=== PATIENT | male | born 1950 | race Caucasian/White ===

== ENCOUNTER 2019-03-21 00:10 | Inpatient (IN) | payer MEDICARE, OTHER ==
[~2019-03-21] VITALS: Ht 177.8 cm; Wt 179.9 kg
[2019-03-21] MEDS ORDERED: ONDANSETRON 4 MG INJ IV STA (01:58)
[2019-03-21] MEDS ORDERED: morphine 4 MG/ML VIAL IV STA (01:58)
[2019-03-21] MEDS ORDERED: ACETAMINOPHEN 325 MG TAB PO PRN ×2 (02:00→07:00)
[2019-03-21] MEDS ORDERED: ONDANSETRON 4 MG INJ IV PRN ×2 (02:00→07:00)
--- NOTE | 2019-03-21 02:39 | ERD ---
ER Documentation Chief Complaint Chief Complaint Low back pain from ground level fall, no KO, no ALOC. HPI This is a 68-year-old male with a past medical history of hypertension, hyperlipidemia, atrial fibrillation status post pacemaker, aortic valve disease status post TAVR, hepatitis C with liver disease, chronic lower extremity edema, morbid obesity, significant ambulatory dysfunction, a prolonged admission at [facility] for volume overload for which she required significant diuresis, ultimately discharged to a group home facility and rehab center where he remained for 2 months for rehabilitation of physical deconditioning, discharged from the group home facility today after it was determined that he was no longer progressing in rehab who is now presenting after a fall due to continued weakness and ambulatory dysfunction where he landed on his right knee. The patient endorsed significant right knee pain and was not able to get up off the ground. At that time, an ambulance was called. The patient's sensation and strength is intact distal to the injury. The patient reports that he felt that he was prematurely discharged from the group home facility and feels unsafe at home. The patient denies feeling sick recently. The patient denies fever or chills. The patient has had no headache or vision changes. The patient does not endorse neck or back pain. The patient denies lightheadedness or dizziness. The patient has had no chest pain or trouble breathing. The patient denies nausea or vomiting. The patient denies abdominal pain. The patient denies changes to bowel movements or urination. The patient has had no focal deficits. The patient has had no weakness or numbness or tingling to the face or extremities. ROS All systems reviewed and are negative except as per history of present illness. PMhx/Soc History of Surgery: Yes (TAVR Heart valve, Pace maker) Anesthesia Reaction: No Hx Neurological Disorder: Yes (TIA) Hx Respiratory Disorders: No Hx Cardiac Disorders: Yes (Pace maker, A-fib, TAVR) Hx Psychiatric Problems: No Hx Miscellaneous Medical Probl: Yes (DM) Hx Alcohol Use: Yes (Quit ) Hx Substance Use: No Hx Tobacco Use: Yes (Quit ) Smoking Status: Former smoker Physical Exam Vitals Vital Signs Date Temp Pulse Resp B/P (MAP) Pulse Ox O2 O2 Flow FiO2 Time Delivery Rate 03/21/19 97.5 80 18 130/62 100 Room Air 00:47 (84) 03/21/19 97.5 78 18 130/62 100 00:41 (84) Physical Exam Const: No apparent distress, well-developed, well-nourished Head: Normocephalic, Atraumatic Eyes: Normal Conjunctiva. Extraocular movements grossly intact. ENT: Normal External Ears, Nose and Mouth. Neck: Full range of motion. No meningismus. Resp: Clear to auscultation bilaterally, No wheezes, rales or rhonchi Cardio: Regular rate and rhythm. No murmurs, rubs or gallops. Right chest pacemaker present. Abd: Morbid obesity with a BMI of 56. Soft, non tender. Normal bowel sounds Skin: No petechiae or rashes Back: No midline tenderness. No CVA tenderness Ext: No cyanosis. Bilateral lower extremity 1+ pitting edema. Right lateral knee tenderness but range of motion intact. Neur: Awake and alert, oriented 4. Cranial nerves intact. No facial droop. Normal strength, sensation and coordination. Psych: Normal Mood and Affect Results 24 hrs Current Medications Medications Dose Sig/Julius Start Time Status Last (Trade) Ordered Route PRN Stop Time Admin Dose Reason Admin Ondansetron 4 mg BRIDGE ORDER 03/21/19 HCl (Zofran PRN IV 02:00 Inj) NAUSEA/VOMITI 03/22/19 01:59 NG 650 mg ER BRIDGE 03/21/19 Acetaminophen PRN PO 02:00 (Tylenol .MILD PAIN 03/22/19 01:59 Tab) 1-3 OR TEMP Morphine 4 mg ONCE STAT 03/21/19 DC Sulfate IV 01:58 (morphine) 03/21/19 01:59 Ondansetron 4 mg ONCE STAT 03/21/19 DC HCl (Zofran IV 01:58 Inj) 03/21/19 01:59 Procedures/MDM MDM The patient's presentation warrants further investigation. Previous medical records, if available, were reviewed. LABS The patient's laboratory testing was obtained and reviewed. No emergent treatment was required unless described below. EKG EKG read by me: Rate/Rhythm: Regular rate and rhythm at a rate of 86 bpm with occasional PACs Intervals: Prolonged IL interval indicating a first-degree AV block wide QRS indicating a left bundle branch block, does not meet any sgarbossa criteria Treichlers: Left axis deviation Impression: No evidence of acute ischemia or arrhythmia IMAGING Imaging and Radiology interpretation reviewed. CXR 1V Interpreted by me Soft Tissue: No acute abnormalities Bones: No acute abnormalities Mediastinum/Cardiac Silhouette: Right chest pacemaker evident. Cardiomegaly, otherwise unremarkable. No widened mediastinum. Lungs: No acute abnormalities. Normal pulmonary vasculature. No pneumothorax. No pulmonary edema. Clear costal diaphragmatic angles. No pleural effusions. No opacity or consolidations concerning for pneumonia. X-ray right knee Interpreted by me Proximal right fibular fracture X-ray right tib-fib Pending TREATMENT/DISPOSITION The patient presents for continued deconditioning and right knee pain after a fall due to weakness in his knees buckling under his weight. The patient was discharged from a group home facility today, but at this time I do not feel that the patient is safe for discharge under the circumstances. Additionally, the patient was found to have a right fibular fracture that will not allow him to successfully or safely ambulate at home. The patient will require further evaluation of this. I do also feel the patient requires physical and occupational therapy. The on-call orthopedic surgeon, Dr. Vigil, was consulted on the case. Preoperative testing was completed. There is no other trauma or injury. The patient was treated with morphine and Zofran for symptom control. ADMISSION At this time, I feel that the patient requires admission for further evaluation and management. The patient will be admitted to [Panel] in accordance with the patient's insurance. The patient was accepted by Dr. Leavitt at 1:55 AM on March 21, 2019. The on-call orthopedic physician, Dr. Vigil, was consulted on the case. Disclaimer: Inadvertent spelling and grammatical errors are likely due to EHR/dictation software use and do not reflect on the overall quality of patient care. Note that the electronic time recorded on this note does not necessarily reflect the actual time of the patient encounter. Departure Diagnosis: Primary Impression: Closed right fibular fracture Encounter type: initial encounter Fibula location: proximal Fracture morphology: unspecified fracture morphology Qualified Codes: S82.831A - Other fracture of upper and lower end of right fibula, initial encounter for closed fracture Additional Impressions: Physical deconditioning Ambulatory dysfunction Morbid obesity Generalized weakness Condition: Serious DILSHAD AMARO MD March 21, 2019 02:39
[2019-03-21 06:30] VITALS: BP 110/57; PULSE 80; RESP 18
--- NOTE | 2019-03-21 06:47 | HP ---
Date/Time of Note Date/Time of Note DATE: 03/21/19 TIME: 06:43 Assessment/Plan VTE Prophylaxis Pharmacological prophylaxis: heparin Assessment/Plan Assessment/Plan 68-year-old morbidly obese male with a history of TIA, atrial fibrillation status post ablation a year and half ago, pacemaker, TAVR, liver disease, hep C cirrhosis status post treatment, CKD, GI bleed secondary to small intestinal ulcer status post cauterization at [facility] 2 months ago who came to hospital status post mechanical fall found to have acute right fibula fracture. PLAN -Patient was at rehab for about 2 months and pretty much immediately after she was discharged from rehab, she had a mechanical fall, and now as we know resulting in right fibula fracture. Dr. Vigil, Ortho was consulted -Pain management -Continue home meds, adjust as needed -Obtain records from [facility] -will order bariatric bed for him if possible -Nephrology consult -Patient will have surgery, is going to need a cardiology clearance -DVT prophylaxis. Caution on the blood thinners however given GI bleed secondary to small intestinal ulcer (status post cauterization at [facility] 2 months ago) (see HPI for more info) Result Diagram: 03/21/19 0249 03/21/19 0249 Results 24hrs Laboratory Tests Test 03/21/19 02:49 White Blood Count 7.4 Red Blood Count 3.72 L Hemoglobin 10.6 L Hematocrit 33.8 L Mean Corpuscular Volume 90.9 Mean Corpuscular Hemoglobin 28.5 L Mean Corpuscular Hemoglobin Concent 31.4 L Red Cell Distribution Width 17.0 H Platelet Count 88 L Mean Platelet Volume 9.7 Immature Granulocytes % 0.300 Neutrophils % 80.7 H Lymphocytes % 9.2 L Monocytes % 7.8 Eosinophils % 1.6 Basophils % 0.4 Nucleated Red Blood Cells % 0.0 Immature Granulocytes # 0.020 Neutrophils # 6.0 Lymphocytes # 0.7 L Monocytes # 0.6 Eosinophils # 0.1 Basophils # 0.0 Nucleated Red Blood Cells # 0.0 Prothrombin Time 15.6 H Prothrombin Time Ratio 1.2 INR International Normalized Ratio 1.23 Sodium Level 139 Potassium Level 4.2 Chloride Level 107 Carbon Dioxide Level 24 Anion Gap 8 Blood Urea Nitrogen 34 H Creatinine 1.75 H Est Glomerular Filtrat Rate mL/min 39 L Glucose Level 128 Calcium Level 9.2 HPI/ROS Admit Date/Time Admit Date/Time March 21, 2019 at 01:58 Hx of Present Illness This is a 68-year-old morbidly obese male with a history of diabetes, TIA, atrial fibrillation, pacemaker, aortic valve replacement, hep C cirrhosis, status post treatment for hep C, and history of CKD and anemia/GI bleed who presents the ER complaining of right lower extremity and back pain status post fall. Patient was admitted at [facility] couple months ago for anemia and GI bleed. At that time he underwent EGD and colonoscopy without finding of a source of bleeding. He said he was then seen by a specialist who was able to "get to my intestine and found active bleeding". He said after he was cauterized, his hemoglobin stabilized. He required 8 units of PRBCs while he was hospitalized. Patient was then sent to rehab. He said initially he was dealing with flu like symptoms. He was able to do rehab for about 2 weeks after resolution of his flulike symptoms. He was discharged from rehab and shortly after he got home, he said his knee buckled resulting him to fall. X-ray here shows acute right fibula fracture. He complains that he was prematurely discharged from rehab. Lab shows a creatinine of 1.75. Patient also with signs of volume overload. PMH/Family/Social Past Medical History Medical History: other (See HPI) Medications Current Medications Ondansetron HCl (Zofran Inj) 4 mg BRIDGE ORDER PRN IV NAUSEA/VOMITING; Start 03/21/19 at 02:00; Stop 03/22/19 at 01:59 Acetaminophen (Tylenol Tab) 650 mg ER BRIDGE PRN PO .MILD PAIN 1-3 OR TEMP; Start 03/21/19 at 02:00; Stop 03/22/19 at 01:59 Coded Allergies: Penicillins (Verified Allergy, Unknown, 03/21/19) as per patient he was given penicillin eardrops in the past and his ear canal "closed" and his MD told him at thst time that "maybe he is allergic" Past Surgical History Past Surgical Hx: other (See HPI) Family History Significant Family History: no pertinent family hx Social History Alcohol Use: none Smoking Status: Former smoker Drug Use: none Exam/Review of Systems Vital Signs Vitals Vital Signs Date Temp Pulse Resp B/P (MAP) Pulse Ox O2 O2 Flow FiO2 Time Delivery Rate 03/21/19 88 18 124/68 100 Room Air 05:22 (86) 03/21/19 97.5 00:47 Exam Constitutional: alert, oriented, well developed Head: normocephalic, atraumatic Eyes: EOMI, PERRL Respiratory: clear to auscultation, normal air movement Cardiovascular: regular rate and rhythm, nl pulses Gastrointestinal: soft Extremities: other (Right leg is covered) ALLEN TUCKER MD March 21, 2019 06:47
[2019-03-21] MEDS ORDERED: NACL 0.9% 3 ML SYG IV SCH (07:00)
[2019-03-21] MEDS ORDERED: ALBUTEROL/IPRATROPIUM (NEB) 3 ML AMP HHN PRN (07:00)
[2019-03-21] MEDS ORDERED: HYDROCODONE/APAP (5/325) TAB PO PRN (07:00)
[2019-03-21 07:30] VITALS: Ht 177.8 cm; Wt 179.9 kg
[2019-03-21] MEDS ORDERED: GLUCAGON 1 MG INJ IM PRN (08:00)
[2019-03-21] MEDS ORDERED: GLUCOSE GEL 15 GRAM TUBE BUCCAL PRN (08:00)
[2019-03-21] MEDS ORDERED: GLUCOSE GEL 15 GRAM TUBE PO PRN ×2 (08:00)
[2019-03-21] MEDS ORDERED: DEXTROSE 50% 50 ML SYRINGE IV PRN ×2 (08:00)
[2019-03-21 08:04] VITALS: BP 100/51; PULSE 82; RESP 16
[2019-03-21] MEDS: HYDROCODONE/APAP (5/325) TAB PO PRN ×3 (08:57→21:50)
[2019-03-21] MEDS: INSULIN ASPART [NOVOLOG] 3 ML PEN SC SCH ×3 (09:00→17:39)
[2019-03-21] MEDS: HEPARIN 5,000 UNIT/1 ML VIAL SC SCH ×2 (09:00→21:01)
[2019-03-21 16:42] VITALS: BP 108/51; PULSE 68; RESP 17
--- NOTE | 2019-03-21 18:15 | PN ---
Date/Time of Note Date/Time of Note DATE: 03/21/19 TIME: 18:01 Assessment/Plan VTE Prophylaxis Risk score (from Ns)>0 risk: 11 SCD applied (from [facility] [place], [place]): Yes Pharmacological prophylaxis: NA/contraindicated Pharm contraindication: bleeding Lines/Catheters IV Catheter Type (from [facility]): Saline Lock Urinary Cath still in place: No Assessment/Plan Hospital Course 68-year-old morbidly obese male with a history of TIA, atrial fibrillation status post ablation a year and half ago, pacemaker, TAVR, liver disease, hep C cirrhosis status post treatment, CKD, GI bleed secondary to small intestinal ulcer status post cauterization at [facility] 2 months ago who came to hospital status post mechanical fall found to have acute right fibula fracture. 1. Acute right fibular fracture Patient reports being discharged from a SNF yesterday, he became short of breath and weak and subsequently fell Ortho with Dr. Vigil has been consulted Cardiology consultation with Dr. Zamora for cardiac clearance obtained Pain management 2. Super morbid obesity Patient is try to lose weight 3. History of arrhythmia status post pacemaker placement No acute issues 4. History of TAVR No acute issues Continue cardiac meds once known 5. History of A. fib status post ablation Patient was ablated 1.5 years ago with no further episodes of reported A. fib 6. History of GI bleed secondary to intestinal ulcer status post cauterization 2 months ago at [facility] Patient reportedly had an EGD and colonoscopy that showed no source of bleed but was seen by a specialist who was able to cauterize an intestinal ulcer PPI 7. History of hepatitis C status post treatment Anemia and thrombocytopenia noted 8. Acute versus chronic kidney disease Baseline renal function unknown Nephrology consultation obtained Prophylaxis: SCDs Result Diagram: 03/21/19 0249 03/21/19 0249 Results 24hrs Laboratory Tests Test 03/21/19 02:49 03/21/19 09:04 03/21/19 12:43 03/21/19 17:38 White Blood Count 7.4 Red Blood Count 3.72 L Hemoglobin 10.6 L Hematocrit 33.8 L Mean Corpuscular 90.9 Volume Mean Corpuscular 28.5 L Hemoglobin Mean Corpuscular 31.4 L Hemoglobin Concent Red Cell 17.0 H Distribution Width Platelet Count 88 L Mean Platelet Volume 9.7 Immature 0.300 Granulocytes % Neutrophils % 80.7 H Lymphocytes % 9.2 L Monocytes % 7.8 Eosinophils % 1.6 Basophils % 0.4 Nucleated Red Blood 0.0 Cells % Immature 0.020 Granulocytes # Neutrophils # 6.0 Lymphocytes # 0.7 L Monocytes # 0.6 Eosinophils # 0.1 Basophils # 0.0 Nucleated Red Blood 0.0 Cells # Prothrombin Time 15.6 H Prothrombin Time 1.2 Ratio INR International 1.23 Normalized Ratio Sodium Level 139 Potassium Level 4.2 Chloride Level 107 Carbon Dioxide Level 24 Anion Gap 8 Blood Urea Nitrogen 34 H Creatinine 1.75 H Est Glomerular 39 L Filtrat Rate mL/min Glucose Level 128 Calcium Level 9.2 Bedside Glucose 135 132 138 Subjective 24 Hr Interval Summary Constitutional: no complaints Exam/Review of Systems Exam Vitals Vital Signs Date Temp Pulse Resp B/P (MAP) Pulse Ox O2 O2 Flow FiO2 Time Delivery Rate 03/21/19 97.6 68 17 108/51 100 Nasal 16:42 (70) Cannula Constitutional: alert, oriented Respiratory: clear to auscultation Cardiovascular: regular rate and rhythm Gastrointestinal: soft; No distended Musculoskeletal: nl extremities to inspection Results Results 24hrs Laboratory Tests Test 03/21/19 02:49 03/21/19 09:04 03/21/19 12:43 03/21/19 17:38 White Blood Count 7.4 Red Blood Count 3.72 L Hemoglobin 10.6 L Hematocrit 33.8 L Mean Corpuscular 90.9 Volume Mean Corpuscular 28.5 L Hemoglobin Mean Corpuscular 31.4 L Hemoglobin Concent Red Cell 17.0 H Distribution Width Platelet Count 88 L Mean Platelet Volume 9.7 Immature 0.300 Granulocytes % Neutrophils % 80.7 H Lymphocytes % 9.2 L Monocytes % 7.8 Eosinophils % 1.6 Basophils % 0.4 Nucleated Red Blood 0.0 Cells % Immature 0.020 Granulocytes # Neutrophils # 6.0 Lymphocytes # 0.7 L Monocytes # 0.6 Eosinophils # 0.1 Basophils # 0.0 Nucleated Red Blood 0.0 Cells # Prothrombin Time 15.6 H Prothrombin Time 1.2 Ratio INR International 1.23 Normalized Ratio Sodium Level 139 Potassium Level 4.2 Chloride Level 107 Carbon Dioxide Level 24 Anion Gap 8 Blood Urea Nitrogen 34 H Creatinine 1.75 H Est Glomerular 39 L Filtrat Rate mL/min Glucose Level 128 Calcium Level 9.2 Bedside Glucose 135 132 138 Medications Medication Current Medications Ondansetron HCl (Zofran Inj) 4 mg BRIDGE ORDER PRN IV NAUSEA/VOMITING; Start 03/21/19 at 02:00; Stop 03/22/19 at 01:59 Acetaminophen (Tylenol Tab) 650 mg ER BRIDGE PRN PO .MILD PAIN 1-3 OR TEMP; Start 03/21/19 at 02:00; Stop 03/22/19 at 01:59 IV Flush (NS 3 ml) 3 ml PER PROTOCOL IV ; Start 03/21/19 at 07:00 Ondansetron HCl (Zofran Inj) 4 mg Q6H PRN IV NAUSEA/VOMITING; Start 03/21/19 at 07:00 Acetaminophen (Tylenol Tab) 650 mg Q6H PRN PO .PAIN 1-3 OR TEMP; Start 03/21/19 at 07:00 Acetaminophen/ Hydrocodone Bitart ([place] (5/325)) 1 tab Q6H PRN PO .MOD PAIN 4- 6; Start 03/21/19 at 07:00 Acetaminophen/ Hydrocodone Bitart ([place] (5/325)) 2 tab Q6H PRN PO .SEVERE PAIN 7-10 Last administered on 03/21/19at 15:55; Admin Dose 2 TAB; Start 03/21/19 at 07:00 Heparin Sodium (Porcine) (Heparin (5000 Units/1ml)) 5,000 unit Q12 SC Last administered on 03/21/19at 09:00; Admin Dose 5,000 UNIT; Start 03/21/19 at 09:00 Albuterol/ Ipratropium (Duoneb) 3 ml Q2H RESP THERAPY PRN HHN SHORTNESS OF BREATH; Start 03/21/19 at 07:00 Diagnostic Test (Pha) (Accu-Chek) 1 ea 02 XX ; Start 03/22/19 at 02:00 Insulin Aspart (Novolog Insulin Pen) NOVOLOG *MILD* ALGORITHM WITH MEALS BEDTIME SC ; Start 03/21/19 at 07:50 Miscellaneous Information 1 ea NOTE XX ; Start 03/21/19 at 08:00 Glucose (Glutose) 15 gm Q15M PRN PO DECREASED GLUCOSE; Start 03/21/19 at 08:00 Glucose (Glutose) 22.5 gm Q15M PRN PO DECREASED GLUCOSE; Start 03/21/19 at 08:00 Dextrose (D50w Syringe) 25 ml Q15M PRN IV DECREASED GLUCOSE; Start 03/21/19 at 08:00 Dextrose (D50w Syringe) 50 ml Q15M PRN IV DECREASED GLUCOSE; Start 03/21/19 at 08:00 Glucagon (Glucagen) 1 mg Q15M PRN IM DECREASED GLUCOSE; Start 03/21/19 at 08:00 Glucose (Glutose) 15 gm Q15M PRN BUCCAL DECREASED GLUCOSE; Start 03/21/19 at 08:00 JÚNIOR CALLEJAS March 21, 2019 18:12
[2019-03-21 20:21] VITALS: BP 110/53; PULSE 75; RESP 18
[2019-03-21] MEDS: FERROUS SULFATE (EC) 325 MG TAB PO SCH (20:58)
[2019-03-21] MEDS: APIXABAN 5 MG TABLET PO SCH ×2 (20:59→21:00)
[2019-03-21] MEDS: ASCORBIC ACID 500 MG TAB PO SCH (20:59)
[2019-03-21] MEDS ORDERED: traMADol 50 MG TAB PO PRN (21:30)
--- NOTE | 2019-03-21 22:21 | CONS ---
DATE OF ADMISSION: 03/21/2019 DATE OF CONSULTATION: 03/21/2019 HISTORY OF PRESENT ILLNESS: The patient is a 68-year-old male with the history of multiple medical p roblems including obesity, diabetes, TIA, atrial fibrillation with pacemaker in aortic valve replacem ent, hep C cirrhosis, history of chronic kidney disease and past medical history of GI bleeding who w as admitted on 03/21/2019 when he came to the emergency room complaining of pain involving his right knee. He was placed in rehabilitation following the management of his anemia from GI bleeding and fo llowing the discharge from the rehabilitation. On his first day at home, his knee buckle and causing a fall. Following the fall, he was having pain involving his right knee, along with some difficulty for ambulation and he was brought into the emergency room. PHYSICAL EXAMINATION: My examination revealed a 68-year-old male who is obviously obese with the bod y weight of over 400 pounds. There was a mild edema along the right lower extremity with the tendern ess over the lateral aspect of the right proximal leg. The examination of the right knee was limited because of the obesity, however, there were no obvious signs of effusion. On examination, range of motion of the right knee was somewhat limited; however, there were no gross instabilities. There was tenderness around the right knee. There were no signs of acute neurovascular compromise in the righ t lower extremity. The x-ray shows a fracture involving the proximal shaft of the right fibula, whic h is undisplaced. Grossly, there were no obvious tibial plateau fracture. DIAGNOSTIC IMPRESSION: 1. Fracture, proximal shaft of the right fibula. 2. Possible sprain 0of the right knee, rule out possible presence of occult tibial plateau fracture. RECOMMENDATIONS FOR MANAGEMENT: 1. CT scan of the right knee before any ambulation with weightbearing. 2. Limited immobilization of the right knee in a long leg brace with a dial lock at the knee joint. 3. Okay to be up with walker with weightbearing as tolerated if the CT scan of the right knee rule o ut any tibial plateau fracture. Dictated By: ELIGIO SALES MD IK/NTS Conf#: [id number] DID#: [id number] CC: ALLEN TUCKER MD; JÚNIOR CALLEJAS MD;*EndCC*
[2019-03-21] MEDS: MELATONIN 5 MG TABLET PO SCH (23:05)
[2019-03-21] MEDS: DOCUSATE SODIUM 250 MG CAP PO SCH (23:05)
[2019-03-22] MEDS ORDERED: ACCU-CHEK XX SCH (02:00)
--- NOTE | 2019-03-22 02:06 | CONS ---
DATE OF ADMISSION: 03/21/2019 DATE OF CONSULTATION: 03/21/2019 REASON FOR CONSULTATION: Preoperative evaluation. REQUESTING PHYSICIAN: Dr. Domitila Mayo from the hospitalist service. HISTORY OF PRESENT ILLNESS: Mr. Alicea is a very pleasant 68-year-old male with history of morbid obesity, history of TIA, atrial fibrillation, status post cardioversion per patient, status post ablation per chart biopsy, transcatheter aortic valve replacement at [facility] one year prior, complicated by bradyarrhythmias and subsequent need for permanent pacemaker implant, hepatitis C cirrhosis, status post treatment, chronic kidney disease, GI bleed, status post cauterization @[facility] two months ago, who states that he had been in a rehabilitation facility and was discharged home, but is still having significant difficulty ambulating. He states that he was at home and he was using a walker and he put his walker, took his hands off his walker to turn around, placed himself in the chair, missed the chair, fell on the floor and had subsequent extreme pain. The patient presented here to the emergency department where upon arrival, temperature 97.5, blood pressure 130/62, pulse 78, respiratory rate 18, saturating 100%. The patient's labs were notable for a white blood cell count of 7.4, hemoglobin of 10.6, platelet count of 88, sodium 139, potassium 4.2, creatinine 1.75, BUN 34, INR of 1.2. The patient underwent a tib-fib x-ray, which revealed acute mildly displaced fracture of the proximal fibular shaft. Renal ultrasound revealed an unremarkable retroperitoneal ultrasound, normal kidney size and a chest x-ray that revealed no evidence of acute cardiopulmonary abnormalities and a dual-chamber pacemaker in proper position. The patient's electrocardiogram is in front of the chart and reveals a sinus rhythm, first- degree AV block, left axis deviation with a left bundle-branch block pattern secondary to repolarization abnormalities. The patient subsequently was admitted to the floor and since admit to the floor on telemetry have mild pain in his leg. Denies chest pain, shortness of breath, palpitations. PAST MEDICAL HISTORY: As above in HPI. MEDICATIONS CURRENTLY IN HOSPITAL: 1. Protonix 40 mg daily. 2. Heparin 5000 subQ q.12. 3. Insulin sliding scale. 4. Tylenol p.r.n. 5. Rico p.r.n. 6. DuoNebs p.r.n. ALLERGIES: PENICILLIN. MEDICATIONS PRIOR TO ADMIT: Not in the computer for my review, but per patient, he was taking Eliquis at home, which has been held at this time. Anticipation of upcoming surgery. SOCIAL HISTORY: Very remote tobacco use, ETOH greater than 40 years. FAMILY HISTORY: No history of sudden cardiac or early CAD. REVIEW OF SYSTEMS: As above in HPI. CONSTITUTIONAL: No fevers, chills. PULMONARY: No current shortness of breath. CARDIOVASCULAR: No current chest pain. History of permanent pacemaker, history of transcatheter aortic valve replacement. GASTROINTESTINAL: No vomiting. GENITOURINARY: No hematuria. MUSCULOSKELETAL: Leg fracture. PSYCHIATRIC: No documented psych history. NEUROLOGIC: No documented history of CVA. ENDOCRINE: Positive for diabetes mellitus. PHYSICAL EXAMINATION: VITAL SIGNS: Temperature of 97.6, blood pressure 108/51, pulse 68, respiratory rate 17, satting 100%. GENERAL: The patient is alert, awake, in no acute distress. NECK: JVP is approximately 8 to 9 cm of water. CHEST: Fair air movement throughout. HEART: Regular rate and rhythm. Normal S1, S2, I/ systolic murmur. Nondisplaced PMI. ABDOMEN: Positive bowel sounds, soft, obese. EXTREMITIES: No significant pitting edema. Right lower extremity covered by a cast. 1+ pulses in the left lower extremity, dorsalis pedis, posterior tibia. LABORATORY DATA: As above in HPI. No further labs for my review at this time. IMAGING STUDIES: As above in HPI. No further imaging studies for my review at this time. ECG: As above in HPI. No further electrograms for my review at this time. IMPRESSION: 1. Preoperative evaluation prior to probable surgery for lower extremity right fibular fracture. 2. Status post fall, mechanical by description. 3. Abnormal echocardiogram with a left bundle-branch block pattern, likely chronic. 4. History of permanent pacemaker for bradyarrhythmia. 5. History of transcatheter aortic valve replacement. 6. History of gastrointestinal bleed status post cauterization two months prior. 7. History of hepatitis C with subsequent cirrhosis but status post treatment. 8. Renal failure, question of chronic or acute. 9. Possible diabetes, on medications. RECOMMENDATIONS: 1. At this time, we would send troponins q.6 x3 to assure the patient's left bundle-branch block pattern is chronic in nature and not due to any recent acute coronary syndromes or if there is unlikely an absence of chest pain. 2. Check a 2D echo for this patient's ejection fraction, wall motion. Assess the patient's aortic valve in anticipation of upcoming surgery. 3. We will hold on antihypertensive at this time given the borderline blood pressures. 4. Ongoing evaluation of patient's renal function per primary team. 5. Pending orthopedic consultation for a possible need for surgery. 6. Continue subcutaneous heparin at this time. 7. We will check a fasting lipid panel for general risk stratification and initiate aspirin. Further recommendations pertaining to the surgical candidacy of this patient will be made after completion of the above studies including echocardiographic analysis and serial troponin draws. Thank you for allowing me to take part in the care of this patient. I will continue to follow him along very closely with you, with further recommendations to be made as the patient progresses to his inpatient hospital clinical course. Dictated By: ALTON ALCANTARA/JANICE Conf#: [id number] DID#: [id number] CC: DOMITILA MAYO MD; ALLEN TUCKER MD;*EndCC* MTDD
[2019-03-22 02:27] VITALS: BP 94/46; PULSE 71; RESP 18
[2019-03-22] MEDS: PANTOPRAZOLE (EC) 40 MG TAB PO SCH (05:16)
[2019-03-22] MEDS: FUROSEMIDE 40 MG TAB PO SCH ×2 (05:17→17:22)
[2019-03-22] MEDS ORDERED: PANTOPRAZOLE (EC) 40 MG TAB PO SCH (06:00)
[2019-03-22 08:08] VITALS: BP 112/56; PULSE 65; RESP 18
[2019-03-22] MEDS ORDERED: CHOLECALCIFEROL 2,000 UNIT CAP PO SCH (09:00)
[2019-03-22] MEDS ORDERED: DOCUSATE SODIUM 100 MG CAP PO SCH (09:00)
[2019-03-22] MEDS: APIXABAN 5 MG TABLET PO SCH (09:27)
[2019-03-22] MEDS: ASCORBIC ACID 500 MG TAB PO SCH (09:28)
[2019-03-22] MEDS: FERROUS SULFATE (EC) 325 MG TAB PO SCH ×2 (09:28→13:00)
[2019-03-22] MEDS: DOCUSATE SODIUM 250 MG CAP PO SCH ×2 (09:29→21:05)
[2019-03-22] MEDS: METOPROLOL 25 MG TAB PO SCH (09:30)
[2019-03-22] MEDS: SPIRONOLACTONE 50 MG TAB PO SCH (09:31)
[2019-03-22] MEDS: HYDROCODONE/APAP (5/325) TAB PO PRN ×3 (09:39→23:49)
--- NOTE | 2019-03-22 09:39 | CONS ---
DATE OF ADMISSION: 03/21/2019 DATE OF CONSULTATION: 03/22/2019 TYPE OF CONSULTATION: Nephrology. REASON FOR CONSULTATION: Acute kidney injury, chronic kidney disease. PHYSICIAN REQUESTING CONSULT: Dr. Mayo. HISTORY OF PRESENT ILLNESS: This is a 68-year-old male with a past medical history of chronic kidney disease, history of atrial fibrillation, history of TIA, history of morbid obesity, history of arrhy thmia, status post pacemaker, history of liver disease, history of hepatitis C., cirrhosis, history o f TAVR, who presents to [facility] after a mechanical fall. The patient upon arriv al to the emergency room had x-ray, which showed evidence of acute right tibial fracture. The patien t on admission had imaging studies performed, which showed evidence of a mildly displaced fracture of the proximal fibular shaft. The patient was subsequently admitted to med/surg for evaluation. Per the patient's renal history, the patient states he has a prior history of chronic kidney disease and has a prior acute kidney injury, which in the past has been caused due to his medications and diureti c therapy. The patient currently denies any hemoptysis, hematemesis or hematochezia. PAST MEDICAL HISTORY: As stated above, history of chronic kidney disease, history of TIA, history of atrial fibrillation, history of diabetes, history of obesity, history of valvular heart disease, his tory of cirrhosis. PAST SURGICAL HISTORY: Status post TAVR, status post pacemaker placement. FAMILY HISTORY: No family history of kidney disease. SOCIAL HISTORY: She does not drink, smoke, or do drugs. MEDICATIONS: The patient's medications have been reviewed. REVIEW OF SYSTEMS: A 14-point review of systems was conducted. Pertinent positives stated in HPI, o therwise negative. PHYSICAL EXAMINATION: VITAL SIGNS: Blood pressure is 112/56, respirations 18, pulse 65, temperature 98.3. HEENT: Head is normocephalic. Pupils are reactive to light. NECK: Supple. HEART: Regular rate. LUNGS: Show diminished breath sounds at the base. ABDOMEN: Soft, nontender to palpation. Positive obesity. EXTREMITIES: Negative for clubbing, cyanosis. Positive edema. DERMATOLOGIC: No rashes. MUSCULOSKELETAL: No joint effusion. NEUROLOGIC: Limited exam due to lack of the patient's cooperation, but no obvious focal deficits. T he patient's medications have been reviewed. LABORATORY DATA: Reviewed. IMAGING STUDIES: Reviewed. Renal ultrasound was reviewed, showed no evidence of nephrosis. Chest x -ray was reviewed. ASSESSMENT AND PLAN: This is a 68-year-old male who presents with: 1. Nonoliguric acute kidney injury on top of chronic kidney disease with unknown baseline creatinine . Etiology of current acute kidney injury is possibly due to hemodynamics. The patient's renal func tion has improved in 24 hours with supportive care. The patient's renal ultrasound shows no evidence of obstruction. Plan at this point is to check UA with microanalysis, check urine electrolytes. We would otherwise continue current treatment plan. Continue diuretic therapy. Defer any VILMA inhibito r or ARB at this time. Otherwise, continue supportive care, renally dose all medications and avoid n ephrotoxins. 2. Mild anemia. Monitor hemoglobin and hematocrit levels. 3. Mineral bone disorder, monitor calcium and phosphorus levels. 4. Acute right tubular fracture. The patient is followed by orthopedist. Continue to monitor. 5. Obesity. Continue dietary modification. 6. Arrhythmia. Continue current medical management. 7. History of aortic valve replacement. 8. History of hepatitis C. Continue medical management. 9. History of cirrhosis. Continue current treatment plan. 10. History of gastrointestinal bleed. The patient is status post EGD at [facility]. Continue to monitor . Thank you, Dr. Mayo, for this interesting consult. It will be a pleasure to follow the patient wi th you throughout the hospital course. Dictated By: CORWIN FAIRCHILD DO NR/NTS Conf#: [id number] DID#: [id number] CC: JÚNIOR MAYO MD; ALLEN TUCKER MD; ALTON CUELLAR MD;*EndCC*
[2019-03-22 13:53] VITALS: BP 105/59; PULSE 74; RESP 18
--- NOTE | 2019-03-22 15:13 | CONS ---
Assessment/Plan Assessment/Plan Hospital Course (Demo Recall) IMPRESSION: 1. Preoperative evaluation prior to probable surgery for lower extremity right fibular fracture.-neg trop x 3. NO cp or sob 2. Status post fall, mechanical by description. 3. Abnormal echocardiogram with a left bundle-branch block pattern, likely chronic. 4. History of permanent pacemaker for bradyarrhythmia. 5. History of transcatheter aortic valve replacement. 6. History of gastrointestinal bleed status post cauterization two months prior. 7. History of hepatitis C with subsequent cirrhosis but status post treatment. 8. Renal failure, question of chronic or acute. 9. Possible diabetes, on medications. Recc: -Awaiting echo to be to asses EF/valve preop -f/o LE CT scan just done -Would hold eliquis today until decision made regarding surgery or will delay surgery for holding of elquis -Continue BB -Continue aldactone -Pain control -ongoing ortho eval Consultation Date/Type/Reason Admit Date/Time March 21, 2019 at 01:58 Initial Consult Date 03/21/19 Type of Consult Cardiology Reason for Consultation Preop Requesting Provider: BETH IGLESIAS MD Date/Time of Note DATE: 03/22/19 TIME: 15:08 Exam/Review of Systems Vital Signs Vitals Vital Signs Date Temp Pulse Resp B/P (MAP) Pulse Ox O2 O2 Flow FiO2 Time Delivery Rate 03/22/19 97.6 74 18 105/59 99 Room Air 13:53 (74) 03/22/19 2.0 02:27 Intake and Output 03/21/19 03/21/19 03/22/19 1515:00 23:00 07:00 IntakeIntake Total 760 ml 350 ml 100 ml OutputOutput Total 450 ml 400 ml BalanceBalance 310 ml 350 ml -300 ml Exam Exam Review of Systems: CONSTITUTIONAL: No fevers, chills. PULMONARY: No sob CARDIOVASCULAR: No chest pain/palpitations GASTROINTESTINAL: No nausea/vomiting. GENITOURINARY: No hematuria/dysuria. MUSCULOSKELETAL: No myagias/arthalgias. PSYCHIATRIC: The patient denies depression. NEUROLOGIC: No weakness Constitutional: alert Psych: no complaints Head: normocephalic ENMT: mucosa pink and moist Neck: supple, jvd (9 cm water) Respiratory: clear to auscultation Cardiovascular: regular rate and rhythm Gastrointestinal: soft, non-tender Musculoskeletal: muscle tone (normal) Extremities: edema (trace/B) Neurological: other (No focal deficits) Labs Result Diagram: 03/22/199 03/22/19428 Results 24hrs Laboratory Tests Test 03/21/19 17:38 03/22/19 00:50 03/22/19 04:29 03/22/19 09:25 Bedside Glucose 138 113 Creatine Kinase 34 26 Creatine Kinase 1.5 2.0 Index Creatinine Kinase MB 0.50 0.53 (Mass) Troponin I 0.017 0.017 White Blood Count 4.5 #L Red Blood Count 3.49 L Hemoglobin 10.0 L Hematocrit 32.3 L Mean Corpuscular 92.6 Volume Mean Corpuscular 28.7 L Hemoglobin Mean Corpuscular 31.0 L Hemoglobin Concent Red Cell 16.9 H Distribution Width Platelet Count 80 L Mean Platelet Volume 9.6 Immature 0.200 Granulocytes % Neutrophils % 63.6 Lymphocytes % 21.4 Monocytes % 8.4 Eosinophils % 5.5 Basophils % 0.9 Nucleated Red Blood 0.0 Cells % Immature 0.010 Granulocytes # Neutrophils # 2.9 Lymphocytes # 1.0 Monocytes # 0.4 Eosinophils # 0.3 Basophils # 0.0 Nucleated Red Blood 0.0 Cells # Sodium Level 136 Potassium Level 4.2 Chloride Level 105 Carbon Dioxide Level 26 Anion Gap 5 Blood Urea Nitrogen 35 H Creatinine 1.32 H Est Glomerular 54 L Filtrat Rate mL/min Glucose Level 113 Hemoglobin A1c 5.4 Calcium Level 8.7 Phosphorus Level 4.4 Magnesium Level 2.6 H Total Bilirubin 1.2 Direct Bilirubin 0.00 Indirect Bilirubin 1.2 H Aspartate Amino 39 Transf (AST/SGOT) Alanine 31 Aminotransferase (AL T/SGPT) Alkaline Phosphatase 94 Total Protein 6.0 L Albumin 3.0 L Globulin 3.00 Albumin/Globulin 1.00 Ratio Triglycerides Level 70 Cholesterol Level 98 L LDL Cholesterol, 46 Calculated HDL Cholesterol 38 Cholesterol/HDL 2.5 Ratio Thyroid Stimulating 5.140 H Hormone (TSH) Test 03/22/19 12:52 Creatine Kinase 28 Creatine Kinase 1.9 Index Creatinine Kinase MB 0.52 (Mass) Troponin I < 0.012 Medications Medications Current Medications IV Flush (NS 3 ml) 3 ml PER PROTOCOL IV ; Start 03/21/19 at 07:00 Ondansetron HCl (Zofran Inj) 4 mg Q6H PRN IV NAUSEA/VOMITING; Start 03/21/19 at 07:00 Acetaminophen (Tylenol Tab) 650 mg Q6H PRN PO .PAIN 1-3 OR TEMP; Start 03/21/19 at 07:00 Acetaminophen/ Hydrocodone Bitart ([place] (5/325)) 1 tab Q6H PRN PO .MOD PAIN 4- 6; Start 03/21/19 at 07:00 Acetaminophen/ Hydrocodone Bitart ([place] (5/325)) 2 tab Q6H PRN PO .SEVERE PAIN 7-10 Last administered on 03/22/19 09:39; Admin Dose 2 TAB; Start 03/21/19 at 07:00 Albuterol/ Ipratropium (Duoneb) 3 ml Q2H RESP THERAPY PRN HHN SHORTNESS OF BREATH; Start 03/21/19 at 07:00 Pantoprazole (Protonix Tab) 40 mg DAILY@06 PO Last administered on 03/22/19 05:16; Admin Dose 40 MG; Start 03/22/19 at 06:00 Ascorbic Acid (Vitamin C) 1,000 mg BID PO Last administered on 03/22/19 09:28; Admin Dose 1,000 MG; Start 03/21/19 at 21:00 Cholecalciferol (Vitamin D) 2,000 unit DAILY PO Last administered on 03/22/19 09:29; Admin Dose 2,000 UNIT; Start 03/22/19 at 09:00 Ferrous Sulfate (Ferrous Sulfate (Ec)) 325 mg TID PO Last administered on 03/22/19 09:28; Admin Dose 325 MG; Start 03/21/19 at 21:00 Spironolactone (Aldactone) 100 mg DAILY PO Last administered on 03/22/19 09:31; Admin Dose 100 MG; Start 03/22/19 at 09:00 Furosemide (Lasix) 80 mg BID DIURETICS PO Last administered on 03/22/19 05:17; Admin Dose 80 MG; Start 03/22/19 at 06:00 Metoprolol Tartrate (Lopressor) 25 mg DAILY PO Last administered on 03/22/19 09:30; Admin Dose 25 MG; Start 03/22/19 at 09:00 Apixaban (Eliquis) 5 mg BID PO Last administered on 5/27/19at 09:27; Admin Dose 5 MG; Start 03/21/19 at 21:00 Melatonin (Melatonin) 10 mg HS PO Last administered on 03/21/19at 23:05; Admin Dose 10 MG; Start 03/21/19 at 21:00 Tramadol HCl (Ultram) 50 mg Q6H PRN PO MODERATE PAIN LEVEL 4-6; Start 03/21/19 at 21:30 Docusate Sodium (Colace) 250 mg BID PO Last administered on 03/22/19at 09:29; Admin Dose 250 MG; Start 03/21/19 at 22:00 ALTON CUELLAR March 22, 2019 15:13
[2019-03-22] MEDS: DOCUSATE SODIUM 100 MG CAP PO PRN (16:56)
--- NOTE | 2019-03-22 16:57 | PN ---
Date/Time of Note Date/Time of Note DATE: 03/22/19 TIME: 16:52 Assessment/Plan VTE Prophylaxis Risk score (from Nsg)>0 risk: 2 SCD applied (from Nsg): Yes Pharmacological prophylaxis: heparin Lines/Catheters IV Catheter Type (from Nrsg): Saline Lock Urinary Cath still in place: No Assessment/Plan Hospital Course Obese Comfortable appearing RRR Soft nt nd wwp no cce A/P: 68 yo male with h/o A Fib, TAVR, PPM, HCV presents with tibia fracture Tibia fracture: - CT results noted - Dr Vigil consulted A Fib: - On Eliquis, hold for surgery? Iron def anemia: - Check iron stores, replete if needed HCV Obesity Tinea corpis: - clotimin cream Result Diagram: 03/22/1942803/22/19428 Results 24hrs Laboratory Tests Test 03/21/19 17:38 03/22/19 00:50 03/22/19 04:29 03/22/19 09:25 Bedside Glucose 138 113 Creatine Kinase 34 26 Creatine Kinase 1.5 2.0 Index Creatinine Kinase MB 0.50 0.53 (Mass) Troponin I 0.017 0.017 White Blood Count 4.5 #L Red Blood Count 3.49 L Hemoglobin 10.0 L Hematocrit 32.3 L Mean Corpuscular 92.6 Volume Mean Corpuscular 28.7 L Hemoglobin Mean Corpuscular 31.0 L Hemoglobin Concent Red Cell 16.9 H Distribution Width Platelet Count 80 L Mean Platelet Volume 9.6 Immature 0.200 Granulocytes % Neutrophils % 63.6 Lymphocytes % 21.4 Monocytes % 8.4 Eosinophils % 5.5 Basophils % 0.9 Nucleated Red Blood 0.0 Cells % Immature 0.010 Granulocytes # Neutrophils # 2.9 Lymphocytes # 1.0 Monocytes # 0.4 Eosinophils # 0.3 Basophils # 0.0 Nucleated Red Blood 0.0 Cells # Sodium Level 136 Potassium Level 4.2 Chloride Level 105 Carbon Dioxide Level 26 Anion Gap 5 Blood Urea Nitrogen 35 H Creatinine 1.32 H Est Glomerular 54 L Filtrat Rate mL/min Glucose Level 113 Hemoglobin A1c 5.4 Calcium Level 8.7 Phosphorus Level 4.4 Magnesium Level 2.6 H Total Bilirubin 1.2 Direct Bilirubin 0.00 Indirect Bilirubin 1.2 H Aspartate Amino 39 Transf (AST/SGOT) Alanine 31 Aminotransferase (AL T/SGPT) Alkaline Phosphatase 94 Total Protein 6.0 L Albumin 3.0 L Globulin 3.00 Albumin/Globulin 1.00 Ratio Triglycerides Level 70 Cholesterol Level 98 L LDL Cholesterol, 46 Calculated HDL Cholesterol 38 Cholesterol/HDL 2.5 Ratio Thyroid Stimulating 5.140 H Hormone (TSH) Test 03/22/19 12:52 03/22/19 15:35 Creatine Kinase 28 Creatine Kinase 1.9 Index Creatinine Kinase MB 0.52 (Mass) Troponin I < 0.012 Urine Color YELLOW Urine Clarity CLEAR Urine pH 5.0 Urine Specific 1.013 [place] Urine Ketones NEGATIVE Urine Nitrite NEGATIVE Urine Bilirubin NEGATIVE Urine Urobilinogen NEGATIVE Urine Leukocyte NEGATIVE Esterase Urine Hemoglobin NEGATIVE Urine Random 121.99 Creatinine Urine Random Sodium 13 L Urine Glucose NEGATIVE Urine Total Protein 6.0 Subjective 24 Hr Interval Summary Free Text/Dictation Pain adequately controlled Requests 2nd orthopedic opinion Exam/Review of Systems Exam Vitals Vital Signs Date Temp Pulse Resp B/P (MAP) Pulse Ox O2 O2 Flow FiO2 Time Delivery Rate 03/22/19 97.6 74 18 105/59 99 Room Air 13:53 (74) 03/22/19 2.0 02:27 Intake and Output 03/21/19 03/21/19 03/22/19 1515:00 23:00 07:00 IntakeIntake Total 760 ml 350 ml 100 ml OutputOutput Total 450 ml 400 ml BalanceBalance 310 ml 350 ml -300 ml Results Results 24hrs Laboratory Tests Test 03/21/19 17:38 03/22/19 00:50 03/22/19 04:29 03/22/19 09:25 Bedside Glucose 138 113 Creatine Kinase 34 26 Creatine Kinase 1.5 2.0 Index Creatinine Kinase MB 0.50 0.53 (Mass) Troponin I 0.017 0.017 White Blood Count 4.5 #L Red Blood Count 3.49 L Hemoglobin 10.0 L Hematocrit 32.3 L Mean Corpuscular 92.6 Volume Mean Corpuscular 28.7 L Hemoglobin Mean Corpuscular 31.0 L Hemoglobin Concent Red Cell 16.9 H Distribution Width Platelet Count 80 L Mean Platelet Volume 9.6 Immature 0.200 Granulocytes % Neutrophils % 63.6 Lymphocytes % 21.4 Monocytes % 8.4 Eosinophils % 5.5 Basophils % 0.9 Nucleated Red Blood 0.0 Cells % Immature 0.010 Granulocytes # Neutrophils # 2.9 Lymphocytes # 1.0 Monocytes # 0.4 Eosinophils # 0.3 Basophils # 0.0 Nucleated Red Blood 0.0 Cells # Sodium Level 136 Potassium Level 4.2 Chloride Level 105 Carbon Dioxide Level 26 Anion Gap 5 Blood Urea Nitrogen 35 H Creatinine 1.32 H Est Glomerular 54 L Filtrat Rate mL/min Glucose Level 113 Hemoglobin A1c 5.4 Calcium Level 8.7 Phosphorus Level 4.4 Magnesium Level 2.6 H Total Bilirubin 1.2 Direct Bilirubin 0.00 Indirect Bilirubin 1.2 H Aspartate Amino 39 Transf (AST/SGOT) Alanine 31 Aminotransferase (AL T/SGPT) Alkaline Phosphatase 94 Total Protein 6.0 L Albumin 3.0 L Globulin 3.00 Albumin/Globulin 1.00 Ratio Triglycerides Level 70 Cholesterol Level 98 L LDL Cholesterol, 46 Calculated HDL Cholesterol 38 Cholesterol/HDL 2.5 Ratio Thyroid Stimulating 5.140 H Hormone (TSH) Test 03/22/19 12:52 03/22/19 15:35 Creatine Kinase 28 Creatine Kinase 1.9 Index Creatinine Kinase MB 0.52 (Mass) Troponin I < 0.012 Urine Color YELLOW Urine Clarity CLEAR Urine pH 5.0 Urine Specific 1.013 [place] Urine Ketones NEGATIVE Urine Nitrite NEGATIVE Urine Bilirubin NEGATIVE Urine Urobilinogen NEGATIVE Urine Leukocyte NEGATIVE Esterase Urine Hemoglobin NEGATIVE Urine Random 121.99 Creatinine Urine Random Sodium 13 L Urine Glucose NEGATIVE Urine Total Protein 6.0 Medications Medication Current Medications IV Flush (NS 3 ml) 3 ml PER PROTOCOL IV ; Start 03/21/19 at 07:00 Ondansetron HCl (Zofran Inj) 4 mg Q6H PRN IV NAUSEA/VOMITING; Start 03/21/19 at 07:00 Acetaminophen (Tylenol Tab) 650 mg Q6H PRN PO .PAIN 1-3 OR TEMP; Start 03/21/19 at 07:00 Acetaminophen/ Hydrocodone Bitart ([place] (5/325)) 1 tab Q6H PRN PO .MOD PAIN 4- 6; Start 03/21/19 at 07:00 Acetaminophen/ Hydrocodone Bitart ([place] (5/325)) 2 tab Q6H PRN PO .SEVERE PAIN 7-10 Last administered on 03/22/19at 09:39; Admin Dose 2 TAB; Start 03/21/19 at 07:00 Albuterol/ Ipratropium (Duoneb) 3 ml Q2H RESP THERAPY PRN HHN SHORTNESS OF BREATH; Start 03/21/19 at 07:00 Pantoprazole (Protonix Tab) 40 mg DAILY@06 PO Last administered on 03/22/19at 05:16; Admin Dose 40 MG; Start 03/22/19 at 06:00 Ascorbic Acid (Vitamin C) 1,000 mg BID PO Last administered on 03/22/19 09:28; Admin Dose 1,000 MG; Start 03/21/19 at 21:00 Cholecalciferol (Vitamin D) 2,000 unit DAILY PO Last administered on 03/22/19 09:29; Admin Dose 2,000 UNIT; Start 03/22/19 at 09:00 Spironolactone (Aldactone) 100 mg DAILY PO Last administered on 03/22/19 09:31; Admin Dose 100 MG; Start 03/22/19 at 09:00 Furosemide (Lasix) 80 mg BID DIURETICS PO Last administered on 03/22/19 05:17; Admin Dose 80 MG; Start 03/22/19 at 06:00 Metoprolol Tartrate (Lopressor) 25 mg DAILY PO Last administered on 03/22/19 09:30; Admin Dose 25 MG; Start 03/22/19 at 09:00 Apixaban (Eliquis) 5 mg BID PO Last administered on 03/22/19 09:27; Admin Dose 5 MG; Start 03/21/19 at 21:00; Status Hold Melatonin (Melatonin) 10 mg HS PO Last administered on 03/21/19at 23:05; Admin Dose 10 MG; Start 03/21/19 at 21:00 Tramadol HCl (Ultram) 50 mg Q6H PRN PO MODERATE PAIN LEVEL 4-6; Start 03/21/19 at 21:30 Docusate Sodium (Colace) 250 mg BID PO Last administered on 03/22/19 09:29; Admin Dose 250 MG; Start 03/21/19 at 22:00 Heparin Sodium (Porcine) (Heparin (5000 Units/1ml)) 5,000 unit Q8 SC ; Start 03/22/19 at 22:00 Clotrimazole (Lotrimin Cr) 1 applic BID TOP ; Start 03/22/19 at 21:00 Docusate Sodium (Colace) 100 mg TID PRN PO CONSTIPATION; Start 03/22/19 at 17:00 MARIA A MUNOZ MD March 22, 2019 16:57
[2019-03-22 17:23] VITALS: BP 108/51; PULSE 65
[2019-03-22 20:22] VITALS: BP 100/50; PULSE 69; RESP 18
[2019-03-22] MEDS: CLOTRIMAZOLE 1% 30 GM CR TOP SCH (21:00)
[2019-03-22] MEDS: MELATONIN 5 MG TABLET PO SCH (21:05)
[2019-03-22] MEDS: HEPARIN 5,000 UNIT/1 ML VIAL SC SCH (21:15)
[2019-03-23 02:21] VITALS: BP 102/50; PULSE 65; RESP 20
[2019-03-23] MEDS: PANTOPRAZOLE (EC) 40 MG TAB PO SCH (05:28)
[2019-03-23] MEDS: HEPARIN 5,000 UNIT/1 ML VIAL SC SCH ×3 (05:31→21:35)
[2019-03-23] MEDS ORDERED: FUROSEMIDE 40 MG INJ IV ONE (06:00)
[2019-03-23] MEDS ORDERED: NA PHOSPHATE/BIPHOS 133 ML ENEMA PR PRN (06:30)
[2019-03-23] MEDS: HYDROCODONE/APAP (5/325) TAB PO PRN ×2 (07:19→23:46)
[2019-03-23 07:55] VITALS: BP 111/54; PULSE 70; RESP 18
[2019-03-23] MEDS: DOCUSATE SODIUM 250 MG CAP PO SCH ×2 (08:15→21:11)
[2019-03-23] MEDS: METOPROLOL 25 MG TAB PO SCH (08:16)
[2019-03-23] MEDS: SPIRONOLACTONE 50 MG TAB PO SCH (08:17)
--- NOTE | 2019-03-23 09:12 | CONS ---
Consult Date/Type/Reason Admit Date/Time March 21, 2019 at 01:58 Initial Consult Date Requesting Provider: BETH IGLESIAS MD Date/Time of Note DATE: 03/23/19 TIME: 09:08 Subjective NO acute events - pt eating - so presumed no surgery planned at least for today - will follow on CT scan results ROS: No fever, no chills, no nausea, no vomiting, no diarrhea/constipation No recent weight changes - mild SOB No chest pain, no PND, no orthopnea No dizziness, blurred vision No thirst, no heat or cold intolerance Objective Vitals Vital Signs Date Temp Pulse Resp B/P (MAP) Pulse Ox O2 O2 Flow FiO2 Time Delivery Rate 03/23/19 98.0 70 18 111/54 94 Room Air 07:55 (73) 03/22/19 2.0 02:27 Intake and Output 03/22/19 03/22/19 03/23/19 1515:00 23:00 07:00 IntakeIntake Total 400 ml 200 ml OutputOutput Total 900 ml 300 ml BalanceBalance -500 ml -100 ml Exam General: WN/WD/NAD, AOx 3 HEENT: Unicetric/atraumatic/EOMI (follow commands) NECK: JVD elevated, no thyromegaly Lymph: no lymphadenopathy HEART: regular with no S3, II/ systolic murmur at apex LUNGS: Coarse sounds ABD: soft, NT, ND, +BS : Intact Neuro: non focal SKIN: chronic changes EXT: trace edema Results/Medications Result Diagram: 03/23/1941903/23/19 042 Results 24 hrs Laboratory Tests Test 03/22/19 09:25 03/22/19 12:52 03/22/19 15:35 03/23/19 04:20 Bedside Glucose 113 Creatine Kinase 28 Creatine Kinase 1.9 Index Creatinine Kinase MB 0.52 (Mass) Troponin I < 0.012 Urine Color YELLOW Urine Clarity CLEAR Urine pH 5.0 Urine Specific 1.013 [place] Urine Ketones NEGATIVE Urine Nitrite NEGATIVE Urine Bilirubin NEGATIVE Urine Urobilinogen NEGATIVE Urine Leukocyte NEGATIVE Esterase Urine Hemoglobin NEGATIVE Urine Random 121.99 Creatinine Urine Random Sodium 13 L Urine Glucose NEGATIVE Urine Total Protein 6.0 White Blood Count 4.2 L Red Blood Count 3.40 L Hemoglobin 9.6 L Hematocrit 31.1 L Mean Corpuscular 91.5 Volume Mean Corpuscular 28.2 L Hemoglobin Mean Corpuscular 30.9 L Hemoglobin Concent Red Cell 16.7 H Distribution Width Platelet Count 81 L Mean Platelet Volume 9.9 Immature 0.200 Granulocytes % Neutrophils % 61.5 Lymphocytes % 23.5 Monocytes % 7.9 Eosinophils % 6.2 Basophils % 0.7 Nucleated Red Blood 0.0 Cells % Immature 0.010 Granulocytes # Neutrophils # 2.6 Lymphocytes # 1.0 Monocytes # 0.3 Eosinophils # 0.3 Basophils # 0.0 Nucleated Red Blood 0.0 Cells # Sodium Level 136 Potassium Level 4.2 Chloride Level 105 Carbon Dioxide Level 25 Anion Gap 6 Blood Urea Nitrogen 35 H Creatinine 1.48 H Est Glomerular 47 L Filtrat Rate mL/min Glucose Level 112 Calcium Level 8.6 Phosphorus Level 3.7 Magnesium Level 2.4 Iron Level 42 Total Iron Binding 302 Capacity Percent Iron 14 L Saturation Ferritin 23.5 Medications Current Medications IV Flush (NS 3 ml) 3 ml PER PROTOCOL IV ; Start 03/21/19 at 07:00 Ondansetron HCl (Zofran Inj) 4 mg Q6H PRN IV NAUSEA/VOMITING; Start 03/21/19 at 07:00 Acetaminophen (Tylenol Tab) 650 mg Q6H PRN PO .PAIN 1-3 OR TEMP; Start 03/21/19 at 07:00 Acetaminophen/ Hydrocodone Bitart ([place] (5/325)) 1 tab Q6H PRN PO .MOD PAIN 4- 6; Start 03/21/19 at 07:00 Acetaminophen/ Hydrocodone Bitart ([place] (5/325)) 2 tab Q6H PRN PO .SEVERE PAIN 7-10 Last administered on 03/23/19at 07:19; Admin Dose 2 TAB; Start 03/21/19 at 07:00 Albuterol/ Ipratropium (Duoneb) 3 ml Q2H RESP THERAPY PRN HHN SHORTNESS OF BREATH; Start 03/21/19 at 07:00 Pantoprazole (Protonix Tab) 40 mg DAILY@06 PO Last administered on 03/23/19at 05:28; Admin Dose 40 MG; Start 03/22/19 at 06:00 Spironolactone (Aldactone) 100 mg DAILY PO Last administered on 03/23/19at 08:17; Admin Dose 100 MG; Start 03/22/19 at 09:00 Furosemide (Lasix) 80 mg BID DIURETICS PO Last administered on 03/22/19 17:22; Admin Dose 80 MG; Start 03/22/19 at 06:00; Status Hold Metoprolol Tartrate (Lopressor) 25 mg DAILY PO Last administered on 03/23/19 08:16; Admin Dose 25 MG; Start 03/22/19 at 09:00 Apixaban (Eliquis) 5 mg BID PO Last administered on 03/22/19 09:27; Admin Dose 5 MG; Start 03/21/19 at 21:00; Status Hold Melatonin (Melatonin) 10 mg HS PO Last administered on 03/22/19at 21:05; Admin Dose 10 MG; Start 03/21/19 at 21:00 Tramadol HCl (Ultram) 50 mg Q6H PRN PO MODERATE PAIN LEVEL 4-6; Start 03/21/19 at 21:30 Docusate Sodium (Colace) 250 mg BID PO Last administered on 03/23/19at 08:15; Admin Dose 250 MG; Start 03/21/19 at 22:00 Heparin Sodium (Porcine) (Heparin (5000 Units/1ml)) 5,000 unit Q8 SC Last administered on 03/23/19at 05:31; Admin Dose 5,000 UNIT; Start 03/22/19 at 22:00 Clotrimazole (Lotrimin Cr) 1 applic BID TOP ; Start 03/22/19 at 21:00 Docusate Sodium (Colace) 100 mg TID PRN PO CONSTIPATION Last administered on 03/22/19at 16:56; Admin Dose 100 MG; Start 03/22/19 at 17:00 Sodium Biphosphate/ Sodium Phosphate (Fleet Enema) 133 ml DAILY PRN [place] CONSTIPATION; Start 03/23/19 at 06:30 Assessment/Plan Hospital Course (Demo Recall) 1. Preoperative evaluation prior to probable surgery for lower extremity right fibular fracture.-neg trop x 3. NO cp or sob - con't to keep euvolemic. 2. Status post fall, mechanical by description - pacer in place. 3. Abnormal echocardiogram with a left bundle-branch block pattern, likely chronic. Off tele now. 4. History of permanent pacemaker for bradyarrhythmia - site well healed. 5. History of transcatheter aortic valve replacement - stable by exam - will monitor now. 6. History of gastrointestinal bleed status post cauterization two months prior - H/H stable - no active bleeding now. 7. History of hepatitis C with subsequent cirrhosis but status post treatment. 8. Renal failure, question of chronic or acute - good urine output now. 9. Possible diabetes, on medications. HUBER ORTEGA MD March 23, 2019 09:12
--- NOTE | 2019-03-23 09:27 | PN ---
DATE: 03/23/2019 SUBJECTIVE: The patient is stable, no events overnight. No fevers, chills, nausea or vomiting. OBJECTIVE: VITAL SIGNS: Blood pressure is 111/54, respirations 18, pulse 70, temperature 98.0. HEENT: Head is normocephalic. NECK: Supple. HEART: Regular rate. LUNGS: Show diminished breath sounds at the base. ABDOMEN: Soft, nontender to palpation without rebound or guarding. EXTREMITIES: Negative for clubbing, cyanosis. Trace edema. DERMATOLOGIC: No rashes. MUSCULOSKELETAL: No joint effusion. NEUROLOGIC: No change in exam. MEDICATIONS: The patient's medications have been reviewed. LABORATORY DATA: Reviewed. IMAGING STUDIES: Reviewed. ASSESSMENT AND PLAN: 1. Nonoliguric acute kidney injury on top of chronic kidney disease with unknown baseline creatinine . Etiology of acute kidney injury is secondary to hemodynamics, possible intravascular volume deplet ion. The patient's FENa is less than 1% consistent with prerenal etiology. The patient also appears euvolemic on exam. At this point, we will continue current treatment plan, supportive care, renally dose all medications. We would hold diuretic therapy. Defer any VILMA inhibitor or ARB at this time. 2. Anemia. Continue to monitor hemoglobin and hematocrit levels. 3. Mineral bone disorder, monitor calcium and phosphorus levels. 4. Acute right tubular fracture. Continue to monitor. Follow up with orthopedist. 5. Obesity. Continue dietary modification. 6. Arrhythmia. Continue medical management. 7. History of aortic valve replacement. 8. History of hepatitis C. 9. History of cirrhosis. Continue current treatment plan. 10. History of gastrointestinal bleed. Dictated By: CORWIN FAIRCHILD DO NR/NTS Conf#: [id number] DID#: [id number] CC: ALTON CUELLAR MD; MARIA A MUNOZ MD; ALLEN TUCKER MD;*EndCC*
[2019-03-23] MEDS: CLOTRIMAZOLE 1% 30 GM CR TOP SCH ×2 (10:21→21:13)
--- NOTE | 2019-03-23 11:07 | RADRPT ---
Echocardiogram Report Patient Name: ESHA TREADWELLPatient ID: [id number] : 1950 (68y 6m)Study Date: 03/23/2019 9:32:34 AM Gender: MAccession #: [id number] Tech: Leodan Bruce [facility] Location: [address] Ref.Physician: ALLEN TUCKER Height(Cm): BSA: Weight(Kg): Quality: Technically Difficult StudyOrder Physician: ALLEN TUCKER Account #: Procedures: Echocardiographic Report: Transthoracic echocardiogram with complete 2D, M-Mode, and doppler examination. Indications: Evaluate Left Ventricular function/TAVR. Measurements: 2D/M Mode Doppler Measurement Value Normal Range Measurement Value Normal Range LVIDd 2D 6.1 [ 4.2 - 5.8 ] cm AV Mean Scott 2.4 [ 70.0 - 90.0 ] cm/sec LVIDs 2D 4.1 [ 2.5 - 4.0 ] cm AV Mean PG 26.0 [ 2.0 - 4.0 ] mmHg LVPWd 2D 1.2 [ 0.6 - 1.0 ] cm AV Peak Scott 3.5 [ 100.0 - 170.0 ] cm/sec IVSd 2D 1.5 [ 0.6 - 1.0 ] cm AV Peak PG 48.0 [ 2.0 - 9.0 ] mmHg IVS/LVPW 2D 1.3 ratio AV VTI 79.2 cm AoR Diam 2D 2.4 [ 2.6 - 3.4 ] cm LVOT Peak Scott 1.3 [ 70.0 - 110.0 ] cm/sec LA/Ao 2D 2 ratio LVOT Peak PG 7.0 [ 2.0 - 6.0 ] mmHg LA Dimen 2D 4.8 [ 3.0 - 4.0 ] cm MV E Peak Scott 1.1 [ 60.0 - 130.0 ] cm/sec MV A Peak Scott 1.0 [ 100.0 - 120.0 ] cm/sec MV E/A 1.2 [ 0.8 - 1.5 ] ratio MV Decel Time 292 [ 104 - 258 ] msec Lat E` Scott 0.2 [ 10.0 - 15.0 ] cm/sec MV E/A 1.2 [ 0.8 - 1.5 ] ratio TR Peak Scott 2.7 [ 100.0 - 280.0 ] cm/sec TR Peak PG 29.0 mmHg RVSP 37.0 [ 10.0 - 36.0 ] mmHg Findings: Left Ventricle: Lower limits of normal systolic function. Moderate asymmetric septal hypertrophy. Mild enlargement of left ventricle cavity. Ejection fraction is visually estimated at 50 %. Tissue Doppler/Mitral Doppler indices are consistent with impaired relaxation (Stage I diastolic dysfunction). Right Ventricle: Normal right ventricular systolic function. Moderate enlargement of right ventricle. Left Atrium: There is moderate enlargement of left atrium. Right Atrium: There is severe enlargement of right atrium. Mitral Valve: Mild mitral leaflet calcification. Mild mitral annular calcification. Trace mitral regurgitation. Aortic Valve: Transcatheter aortic valve replacement. Gradients abnormal for valve type and size. Aortic valve Max velocity 3.27 m/sec. Max PG 43.00 mmHg. Mean PG 26.00 mmHg. Tricuspid Valve: Normal appearance of the tricuspid valve. The estimated Peak RVSP is 37 mmHg. There is mild tricuspid regurgitation. Pericardium: Normal pericardium with no significant pericardial effusion. Aorta: Normal aortic root. IVC: Dilated IVC with respiratory collapse consistent with elevated right atrial pressure. Conclusions: Lower limits of normal systolic function. Moderate asymmetric septal hypertrophy. Mild enlargement of left ventricle cavity. Ejection fraction is visually estimated at 50 %. Tissue Doppler/Mitral Doppler indices are consistent with impaired relaxation (Stage I diastolic dysfunction). There is moderate enlargement of left atrium. Mild mitral leaflet calcification. Mild mitral annular calcification. Trace mitral regurgitation. Transcatheter aortic valve replacement. Gradients abnormal for valve type and size. Aortic valve Max velocity 3.27 m/sec. Max PG 43.00 mmHg. Mean PG 26.00 mmHg. Normal appearance of the tricuspid valve. The estimated Peak RVSP is 37 mmHg. There is mild tricuspid regurgitation. Electronically Signed By: Juve Perez 2019-03-23 11:06:23 PDT
[2019-03-23 15:08] VITALS: BP 105/54; PULSE 72; RESP 20
--- NOTE | 2019-03-23 15:32 | PN ---
Date/Time of Note Date/Time of Note DATE: 03/23/19 TIME: 15:31 Assessment/Plan VTE Prophylaxis Risk score (from Ns)>0 risk: 16 SCD applied (from [facility]): Yes Pharmacological prophylaxis: heparin Lines/Catheters IV C[facility]ter Type [facility]from [facility] [place] Urinary Cath still in place: No Assessment/Plan Hospital Course Obese Comfortable appearing RRR Soft nt nd wwp no cce A/P: 68 yo male with h/o A Fib, TAVR, PPM, HCV presents with tibia fracture Tibia fracture: - CT results noted - Dr Vigil consulted - Dr Menezes consulted for second opinion A Fib: - Holding Eliquis for now Iron def anemia: - IV iron while in house CKD w NADINE: - Hold diuretics for now HCV Obesity Tinea corpis: - clotimin cream PUD: - Pantoprazole Result Diagram: 03/23/1941903/23/19 0420 Results 24hrs Laboratory Tests Test 03/22/19 15:35 03/23/19 04:20 Urine Color YELLOW Urine Clarity CLEAR Urine pH 5.0 Urine Specific [place] 1.013 Urine Ketones NEGATIVE Urine Nitrite NEGATIVE Urine Bilirubin NEGATIVE Urine Urobilinogen NEGATIVE Urine Leukocyte Esterase NEGATIVE Urine Hemoglobin NEGATIVE Urine Random Creatinine 121.99 Urine Random Sodium 13 L Urine Glucose NEGATIVE Urine Total Protein 6.0 White Blood Count 4.2 L Red Blood Count 3.40 L Hemoglobin 9.6 L Hematocrit 31.1 L Mean Corpuscular Volume 91.5 Mean Corpuscular Hemoglobin 28.2 L Mean Corpuscular Hemoglobin Concent 30.9 L Red Cell Distribution Width 16.7 H Platelet Count 81 L Mean Platelet Volume 9.9 Immature Granulocytes % 0.200 Neutrophils % 61.5 Lymphocytes % 23.5 Monocytes % 7.9 Eosinophils % 6.2 Basophils % 0.7 Nucleated Red Blood Cells % 0.0 Immature Granulocytes # 0.010 Neutrophils # 2.6 Lymphocytes # 1.0 Monocytes # 0.3 Eosinophils # 0.3 Basophils # 0.0 Nucleated Red Blood Cells # 0.0 Sodium Level 136 Potassium Level 4.2 Chloride Level 105 Carbon Dioxide Level 25 Anion Gap 6 Blood Urea Nitrogen 35 H Creatinine 1.48 H Est Glomerular Filtrat Rate mL/min 47 L Glucose Level 112 Calcium Level 8.6 Phosphorus Level 3.7 Magnesium Level 2.4 Iron Level 42 Total Iron Binding Capacity 302 Percent Iron Saturation 14 L Ferritin 23.5 Subjective 24 Hr Interval Summary Free Text/Dictation Pateint in good spirits No comlaints Exam/Review of Systems Exam Vitals Vital Signs Date Temp Pulse Resp B/P (MAP) Pulse Ox O2 O2 Flow FiO2 Time Delivery Rate 03/23/19 97.8 72 20 105/54 94 Room Air 15:08 (71) 03/22/19 2.0 02:27 Intake and Output 03/22/19 03/22/19 03/23/19 1414:59 22:59 06:59 IntakeIntake Total 400 ml 200 ml OutputOutput Total 900 ml 300 ml BalanceBalance -500 ml -100 ml Results Results 24hrs Laboratory Tests Test 03/22/19 15:35 03/23/19 04:20 Urine Color YELLOW Urine Clarity CLEAR Urine pH 5.0 Urine Specific [place] 1.013 Urine Ketones NEGATIVE Urine Nitrite NEGATIVE Urine Bilirubin NEGATIVE Urine Urobilinogen NEGATIVE Urine Leukocyte Esterase NEGATIVE Urine Hemoglobin NEGATIVE Urine Random Creatinine 121.99 Urine Random Sodium 13 L Urine Glucose NEGATIVE Urine Total Protein 6.0 White Blood Count 4.2 L Red Blood Count 3.40 L Hemoglobin 9.6 L Hematocrit 31.1 L Mean Corpuscular Volume 91.5 Mean Corpuscular Hemoglobin 28.2 L Mean Corpuscular Hemoglobin Concent 30.9 L Red Cell Distribution Width 16.7 H Platelet Count 81 L Mean Platelet Volume 9.9 Immature Granulocytes % 0.200 Neutrophils % 61.5 Lymphocytes % 23.5 Monocytes % 7.9 Eosinophils % 6.2 Basophils % 0.7 Nucleated Red Blood Cells % 0.0 Immature Granulocytes # 0.010 Neutrophils # 2.6 Lymphocytes # 1.0 Monocytes # 0.3 Eosinophils # 0.3 Basophils # 0.0 Nucleated Red Blood Cells # 0.0 Sodium Level 136 Potassium Level 4.2 Chloride Level 105 Carbon Dioxide Level 25 Anion Gap 6 Blood Urea Nitrogen 35 H Creatinine 1.48 H Est Glomerular Filtrat Rate mL/min 47 L Glucose Level 112 Calcium Level 8.6 Phosphorus Level 3.7 Magnesium Level 2.4 Iron Level 42 Total Iron Binding Capacity 302 Percent Iron Saturation 14 L Ferritin 23.5 Medications Medication Current Medications IV Flush (NS 3 ml) 3 ml PER PROTOCOL IV ; Start 03/21/19 at 07:00 Ondansetron HCl (Zofran Inj) 4 mg Q6H PRN IV NAUSEA/VOMITING; Start 03/21/19 at 07:00 Acetaminophen (Tylenol Tab) 650 mg Q6H PRN PO .PAIN 1-3 OR TEMP; Start 03/21/19 at 07:00 Acetaminophen/ Hydrocodone Bitart ([place] (5/325)) 1 tab Q6H PRN PO .MOD PAIN 4- 6; Start 03/21/19 at 07:00 Acetaminophen/ Hydrocodone Bitart ([place] (5/325)) 2 tab Q6H PRN PO .SEVERE PAIN 7-10 Last administered on 03/23/19at 07:19; Admin Dose 2 TAB; Start 03/21/19 at 07:00 Albuterol/ Ipratropium (Duoneb) 3 ml Q2H RESP THERAPY PRN HHN SHORTNESS OF BREATH; Start 03/21/19 at 07:00 Pantoprazole (Protonix Tab) 40 mg DAILY@06 PO Last administered on 03/23/19 05:28; Admin Dose 40 MG; Start 03/22/19 at 06:00 Spironolactone (Aldactone) 100 mg DAILY PO Last administered on 03/23/19at 08:17; Admin Dose 100 MG; Start 03/22/19 at 09:00 Metoprolol Tartrate (Lopressor) 25 mg DAILY PO Last administered on 03/23/19 08:16; Admin Dose 25 MG; Start 03/22/19 at 09:00 Apixaban (Eliquis) 5 mg BID PO Last administered on 03/22/19at 09:27; Admin Dose 5 MG; Start 03/21/19 at 21:00; Status Hold Melatonin (Melatonin) 10 mg HS PO Last administered on 03/22/19at 21:05; Admin Dose 10 MG; Start 03/21/19 at 21:00 Tramadol HCl (Ultram) 50 mg Q6H PRN PO MODERATE PAIN LEVEL 4-6; Start 03/21/19 at 21:30 Docusate Sodium (Colace) 250 mg BID PO Last administered on 03/23/19at 08:15; Admin Dose 250 MG; Start 03/21/19 at 22:00 Heparin Sodium (Porcine) (Heparin (5000 Units/1ml)) 5,000 unit Q8 SC Last administered on 03/23/19at 13:05; Admin Dose 5,000 UNIT; Start 03/22/19 at 22:00 Clotrimazole (Lotrimin Cr) 1 applic BID TOP Last administered on 03/23/19at 10:21; Admin Dose 1 APPLIC; Start 03/22/19 at 21:00 Docusate Sodium (Colace) 100 mg TID PRN PO CONSTIPATION Last administered on 03/22/19at 16:56; Admin Dose 100 MG; Start 03/22/19 at 17:00 Sodium Biphosphate/ Sodium Phosphate (Fleet Enema) 133 ml DAILY PRN [place] CONSTI PATION Last administered on 03/23/19at 10:21; Admin Dose 133 ML; Start 03/23/19 at 06:30 Ferric Sodium Gluconate Complex 125 mg/Sodium Chloride 100 ml @ 100 mls/hr DAILY@1300 IVPB ; Start 03/23/19 at 14:00; Stop 03/25/19 at 13:59 MARIA A MUNOZ MD March 23, 2019 15:32
[2019-03-23] MEDS: SOD FERRIC GLUC COMPLX 125 MG in SOD CHLORIDE 0.9% 100 ML IVPB SCH (15:46)
[2019-03-23 19:43] VITALS: BP 125/60; PULSE 68; RESP 18
[2019-03-23] MEDS: TORSEMIDE 20 MG PO SCH (21:00)
[2019-03-23] MEDS: MELATONIN 5 MG TABLET PO SCH (21:11)
--- NOTE | 2019-03-23 21:17 | CONS ---
Assessment/Plan Assessment/Plan Hospital Course (Demo Recall) 68-year-old male with multiple medical problems including morbid obesity with an acute proximal third fibular shaft fracture on the right. I agree with Dr. Vigil's assessment and plan and that the patient can weight-bear as tolerated in regards to the fibular fracture as there is no occult tibial plateau fracture. However I will add ankle x-rays at this time prior to mobilization to rule out any fracture or maisonneuve injury. If these are negative the patient will be allowed to weight-bear as tolerated and range of motion as tolerated. Right ankle x-rays. Physical therapy for mobilization Consultation Date/Type/Reason Admit Date/Time March 21, 2019 at 01:58 Date of Consultation: March 23, 2019 Reason for Consultation Right proximal fibula fracture Date/Time of Note DATE: 03/23/19 TIME: 21:07 Hx of Present Illness 68-year-old male with multiple medical problems including morbid obesity presented to the emergency department on 03/20/2019 after a fall and inability to bear weight on his right lower extremity. He was seen by orthopedics at that time. However the patient requested from the medicine team for second opinion today. The patient recently was discharged from a SNF where he was being treated for lower extremity edema and mobilization. He fell at home the same day he was discharged. He sustained a proximal fibula fracture. A CT scan of t he knee was ordered at that time by Dr. Vigil from orthopedics to rule out occult tibial plateau fracture. He was found to be negative. Dr. Vigil's plan was to allow the patient to weight-bear as tolerated. The patient is unable to further bear weight secondary to pain. Patient denies numbness and tingling. Patient states he has pain with any motion of the knee. He has pain both laterally and medially. He has pain in his ankle as well. Patient denies fever, chills, shortness of breath, chest pain, nausea/vomiting, constipation, diarrhea, numbness, and tingling. Past Medical History TIA, atrial fibrillation status post ablation a year and half ago, pacemaker, TAVR, liver disease, hep C cirrhosis status post treatment, CKD, GI bleed secondary to small intestinal ulcer Medical History: other Medications Current Medications IV Flush (NS 3 ml) 3 ml PER PROTOCOL IV ; Start 03/21/19 at 07:00 Ondansetron HCl (Zofran Inj) 4 mg Q6H PRN IV NAUSEA/VOMITING; Start 03/21/19 at 07:00 Acetaminophen (Tylenol Tab) 650 mg Q6H PRN PO .PAIN 1-3 OR TEMP; Start 03/21/19 at 07:00 Acetaminophen/ Hydrocodone Bitart ([place] (5/325)) 1 tab Q6H PRN PO .MOD PAIN 4- 6; Start 03/21/19 at 07:00 Acetaminophen/ Hydrocodone Bitart ([place] (5/325)) 2 tab Q6H PRN PO .SEVERE PAIN 7-10 Last administered on 03/23/19 07:19; Admin Dose 2 TAB; Start 03/21/19 at 07:00 Albuterol/ Ipratropium (Duoneb) 3 ml Q2H RESP THERAPY PRN HHN SHORTNESS OF BREATH; Start 03/21/19 at 07:00 Pantoprazole (Protonix Tab) 40 mg DAILY@06 PO Last administered on 03/23/19 05:28; Admin Dose 40 MG; Start 03/22/19 at 06:00 Spironolactone (Aldactone) 100 mg DAILY PO Last administered on 03/23/19 08:17; Admin Dose 100 MG; Start 03/22/19 at 09:00 Metoprolol Tartrate (Lopressor) 25 mg DAILY PO Last administered on 03/23/19 08:16; Admin Dose 25 MG; Start 03/22/19 at 09:00 Apixaban (Eliquis) 5 mg BID PO Last administered on 03/22/19 09:27; Admin Dose 5 MG; Start 03/21/19 at 21:00; Status Hold Melatonin (Melatonin) 10 mg HS PO Last administered on 03/22/19at 21:05; Admin Dose 10 MG; Start 03/21/19 at 21:00 Tramadol HCl (Ultram) 50 mg Q6H PRN PO MODERATE PAIN LEVEL 4-6; Start 03/21/19 at 21:30 Docusate Sodium (Colace) 250 mg BID PO Last administered on 03/23/19 08:15; Admin Dose 250 MG; Start 03/21/19 at 22:00 Heparin Sodium (Porcine) (Heparin (5000 Units/1ml)) 5,000 unit Q8 SC Last administered on 03/23/19 13:05; Admin Dose 5,000 UNIT; Start 03/22/19 at 22:00 Clotrimazole (Lotrimin Cr) 1 applic BID TOP Last administered on 03/23/19at 10:21; Admin Dose 1 APPLIC; Start 03/22/19 at 21:00 Docusate Sodium (Colace) 100 mg TID PRN PO CONSTIPATION Last administered on 03/22/19at 16:56; Admin Dose 100 MG; Start 03/22/19 at 17:00 Sodium Biphosphate/ Sodium Phosphate (Fleet Enema) 133 ml DAILY PRN [place] CONSTIPATION Last administered on 03/23/19 10:21; Admin Dose 133 ML; Start 03/23/19 at 06:30 Ferric Sodium Gluconate Complex 125 mg/Sodium Chloride 100 ml @ 100 mls/hr DAILY@1300 IVPB Last administered on 03/23/19at 15:46; Admin Dose 100 MLS/HR; Start 03/23/19 at 14:00; Stop 03/25/19 at 13:59 Patient Own Medication 4 ea BID PO ; Start 03/23/19 at 21:00 Allergies: Coded Allergies: Penicillins (Verified Allergy, Unknown, 03/21/19) as per patient he was given penicillin eardrops in the past and his ear canal "closed" and his MD told him at thst time that "maybe he is allergic" Past Surgical History Past Surgical Hx: noncontributory, other (See HPI) Family History Significant Family History: no pertinent family hx Social History Alcohol Use: none Smoking Status: Former smoker Drug Use: none Exam/Review of Systems Exam Vitals Vital Signs Date Temp Pulse Resp B/P (MAP) Pulse Ox O2 O2 Flow FiO2 Time Delivery Rate 03/23/19 98.2 68 18 125/60 97 Room Air 19:43 (81) 03/22/19 2.0 02:27 Intake and Output 03/22/19 03/22/19 03/23/19 1515:00 23:00 07:00 IntakeIntake Total 400 ml 200 ml OutputOutput Total 900 ml 300 ml BalanceBalance -500 ml -100 ml Exam General: Awake, alert, in no acute distress, pleasant and cooperative Heart: regular rhythm Lungs: breathing comfortably, no tachypnea or dyspnea MUSCULOSKELETAL: Right lower extremity: There is no knee effusion. There is no ecchymosis around the knee or tibia or ankle. There is tenderness to palpation over the proximal fibula. There is tenderness palpation along the medial joint line. There is pain diffusely in the knee with range of motion. Given patient's pain and body habitus ligamentous examination was not possible. There is tenderness palpation of the anterior ankle. There is no tenderness palpation along the lateral or medial malleoli. Sensation intact to light touch in a sural, saphenous, deep peroneal, superficial peroneal, medial and lateral plantar nerve distribution. Motor is intact, patient able to dorsiflex and plantarflex ankle and extend and flex great toe. Dorsalis Pedis pulse +2, Brisk capillary refill. Compartments are soft. Calves non-tender to palpation bilaterally. Results Result Diagram: 03/23/1941903/23/19419 Results 24hrs Laboratory Tests Test 03/23/19 04:20 White Blood Count 4.2 L Red Blood Count 3.40 L Hemoglobin 9.6 L Hematocrit 31.1 L Mean Corpuscular Volume 91.5 Mean Corpuscular Hemoglobin 28.2 L Mean Corpuscular Hemoglobin Concent 30.9 L Red Cell Distribution Width 16.7 H Platelet Count 81 L Mean Platelet Volume 9.9 Immature Granulocytes % 0.200 Neutrophils % 61.5 Lymphocytes % 23.5 Monocytes % 7.9 Eosinophils % 6.2 Basophils % 0.7 Nucleated Red Blood Cells % 0.0 Immature Granulocytes # 0.010 Neutrophils # 2.6 Lymphocytes # 1.0 Monocytes # 0.3 Eosinophils # 0.3 Basophils # 0.0 Nucleated Red Blood Cells # 0.0 Sodium Level 136 Potassium Level 4.2 Chloride Level 105 Carbon Dioxide Level 25 Anion Gap 6 Blood Urea Nitrogen 35 H Creatinine 1.48 H Est Glomerular Filtrat Rate mL/min 47 L Glucose Level 112 Calcium Level 8.6 Phosphorus Level 3.7 Magnesium Level 2.4 Iron Level 42 Total Iron Binding Capacity 302 Percent Iron Saturation 14 L Ferritin 23.5 Imaging Imaging 3 views of the right knee, 2 views right tibia and fibula, and CT scan of the right knee demonstrate an acute minimally displaced proximal fibular shaft fracture. Fracture is in relatively good alignment. There is cortical contact. There is no occult fracture of the tibial plateau on CT scan. There is significant osteoarthritis mostly involving the medial compartment. There is no joint effusion. Medications Medication Current Medications IV Flush (NS 3 ml) 3 ml PER PROTOCOL IV ; Start 03/21/19 at 07:00 Ondansetron HCl (Zofran Inj) 4 mg Q6H PRN IV NAUSEA/VOMITING; Start 03/21/19 at 07:00 Acetaminophen (Tylenol Tab) 650 mg Q6H PRN PO .PAIN 1-3 OR TEMP; Start 03/21/19 at 07:00 Acetaminophen/ Hydrocodone Bitart ([place] (5/325)) 1 tab Q6H PRN PO .MOD PAIN 4- 6; Start 03/21/19 at 07:00 Acetaminophen/ Hydrocodone Bitart ([place] (5/325)) 2 tab Q6H PRN PO .SEVERE PAIN 7-10 Last administered on 03/23/19at 07:19; Admin Dose 2 TAB; Start 03/21/19 at 07:00 Albuterol/ Ipratropium (Duoneb) 3 ml Q2H RESP THERAPY PRN HHN SHORTNESS OF BREATH; Start 03/21/19 at 07:00 Pantoprazole (Protonix Tab) 40 mg DAILY@06 PO Last administered on 03/23/19at 05:28; Admin Dose 40 MG; Start 03/22/19 at 06:00 Spironolactone (Aldactone) 100 mg DAILY PO Last administered on 03/23/19at 08:17; Admin Dose 100 MG; Start 03/22/19 at 09:00 Metoprolol Tartrate (Lopressor) 25 mg DAILY PO Last administered on 03/23/19at 08:16; Admin Dose 25 MG; Start 03/22/19 at 09:00 Apixaban (Eliquis) 5 mg BID PO Last administered on 03/22/19at 09:27; Admin Dose 5 MG; Start 03/21/19 at 21:00; Status Hold Melatonin (Melatonin) 10 mg HS PO Last administered on 03/22/19at 21:05; Admin Dose 10 MG; Start 03/21/19 at 21:00 Tramadol HCl (Ultram) 50 mg Q6H PRN PO MODERATE PAIN LEVEL 4-6; Start 03/21/19 at 21:30 Docusate Sodium (Colace) 250 mg BID PO Last administered on 03/23/19at 08:15; Admin Dose 250 MG; Start 03/21/19 at 22:00 Heparin Sodium (Porcine) (Heparin (5000 Units/1ml)) 5,000 unit Q8 SC Last administered on 03/23/19 13:05; Admin Dose 5,000 UNIT; Start 03/22/19 at 22:00 Clotrimazole (Lotrimin Cr) 1 applic BID TOP Last administered on 03/23/19 10:21; Admin Dose 1 APPLIC; Start 03/22/19 at 21:00 Docusate Sodium (Colace) 100 mg TID PRN PO CONSTIPATION Last administered on 03/22/19at 16:56; Admin Dose 100 MG; Start 03/22/19 at 17:00 Sodium Biphosphate/ Sodium Phosphate (Fleet Enema) 133 ml DAILY PRN [place] CONSTIPATION Last administered on 03/23/19 10:21; Admin Dose 133 ML; Start 03/23/19 at 06:30 Ferric Sodium Gluconate Complex 125 mg/Sodium Chloride 100 ml @ 100 mls/hr DAILY@1300 IVPB Last administered on 03/23/19at 15:46; Admin Dose 100 MLS/HR; Start 03/23/19 at 14:00; Stop 03/25/19 at 13:59 Patient Own Medication 4 ea BID PO ; Start 03/23/19 at 21:00 ZOHREH WANG MD March 23, 2019 21:17
[2019-03-24 01:24] VITALS: BP 115/56; PULSE 86; RESP 18
[2019-03-24] MEDS: PANTOPRAZOLE (EC) 40 MG TAB PO SCH (06:52)
[2019-03-24] MEDS: HEPARIN 5,000 UNIT/1 ML VIAL SC SCH ×2 (06:55→13:18)
[2019-03-24] MEDS: TORSEMIDE 20 MG PO SCH ×2 (06:59→17:59)
[2019-03-24] MEDS: SPIRONOLACTONE 50 MG TAB PO SCH (07:01)
[2019-03-24 07:32] VITALS: BP 101/55; PULSE 65; RESP 19
--- NOTE | 2019-03-24 09:07 | RADRPT ---
Vent Rate: 65 bpm RR Interval: 928 msec OR Interval: 266 msec QRS Duration: 194 msec QT Interval: 504 msec QTC Interval: 523 msec P-R-T [place]: -58 - -56 - 101 degrees NSR 1st degree AV block Left bundle branch block...QRSd>120, broad/notched R Electronically Signed By: Adam Peters
[2019-03-24] MEDS: CLOTRIMAZOLE 1% 30 GM CR TOP SCH ×2 (09:09→20:22)
[2019-03-24] MEDS: DOCUSATE SODIUM 250 MG CAP PO SCH ×2 (09:09→20:18)
[2019-03-24] MEDS: METOPROLOL 25 MG TAB PO SCH (09:10)
--- NOTE | 2019-03-24 10:32 | PN ---
DATE: 03/24/2019 SUBJECTIVE: The patient is stable, no events overnight. OBJECTIVE: VITAL SIGNS: Blood pressure is 101/55, pulse 65, respirations 18, temperature 98.1. HEENT: Head is normocephalic. NECK: Supple. HEART: Regular rate. LUNGS: Show diminished breath sounds at the base. ABDOMEN: Soft, nontender to palpation without rebound or guarding. EXTREMITIES: Negative for clubbing, cyanosis, no edema. DERMATOLOGIC: No rashes. MUSCULOSKELETAL: No joint effusion. NEUROLOGIC: No change in exam. MEDICATIONS: Reviewed. LABORATORY DATA: Reviewed. ASSESSMENT AND PLAN: 1. Nonoliguric acute kidney injury with unknown baseline creatinine. Etiology of acute kidney injur y is secondary to hemodynamics, possible intravascular volume depletion. The patient's renal functio n is improving after diuretics were held. At this point, continue current treatment plans, supportiv e care, renally dose all medications. Defer any VILMA inhibitor or ARB at this time. 2. Mild hypernatremia. Continue to monitor. Limit free water intake. 3. Anemia. Monitor hemoglobin and hematocrit levels. 4. Mineral bone disorder, monitor calcium and phosphorus levels. 5. Acute right articular fracture. Continue to monitor, continue conservative management. 5. Obesity. Continue dietary modification. 6. Arrhythmia. Continue current treatment plan. 7. History of aortic valve replacement. 8. History of hepatitis C. 9. History of cirrhosis. Continue current treatment plan. 10. History of gastrointestinal bleed. Dictated By: CORWIN FAIRCHILD DO NR/NTS Conf#: [id number] DID#: [id number] CC: MARIA A MUNOZ MD; ALLEN TUCKER MD; ALTON CUELLAR MD;*EndCC*
[2019-03-24] MEDS: SOD FERRIC GLUC COMPLX 125 MG in SOD CHLORIDE 0.9% 100 ML IVPB SCH (13:12)
[2019-03-24] MEDS: HYDROCODONE/APAP (5/325) TAB PO PRN (13:12)
--- NOTE | 2019-03-24 14:50 | PN ---
Date/Time of Note Date/Time of Note DATE: 03/24/19 TIME: 14:49 Assessment/Plan VTE Prophylaxis Risk score (from Nsg)>0 risk: 10 SCD applied (from Nsg): Yes Pharmacological prophylaxis: heparin Lines/Catheters IV Catheter Type (from Nrsg): Saline Lock Urinary Cath still in place: No Assessment/Plan Hospital Course Obese Comfortable appearing RRR Soft nt nd wwp no cce A/P: 68 yo male with h/o A Fib, TAVR, PPM, HCV presents with tibia fracture Tibia fracture: - CT results noted - Dr Vigil consulted - Dr Menezes consulted for second opinion - No surgery - Begin PT, ambulation A Fib: - Resume Eliquis Iron def anemia: - IV iron while in house CKD w NADINE: - Hold diuretics for now HCV Obesity Tinea corpis: - clotimin cream PUD: - Pantoprazole Result Diagram: 03/23/1941903/24/198 Results 24hrs Laboratory Tests Test 03/24/19 04:28 Sodium Level 134 L Potassium Level 4.5 Chloride Level 105 Carbon Dioxide Level 25 Anion Gap 4 L Blood Urea Nitrogen 33 H Creatinine 1.36 H Est Glomerular Filtrat Rate mL/min 52 L Glucose Level 93 Calcium Level 8.6 Phosphorus Level 3.5 Magnesium Level 2.5 Subjective 24 Hr Interval Summary Free Text/Dictation Ankle XR negative for fracture Feeling well. Very scared to begin ambulating again Exam/Review of Systems Exam Vitals Vital Signs Date Temp Pulse Resp B/P (MAP) Pulse Ox O2 O2 Flow FiO2 Time Delivery Rate 03/24/19 98.1 65 19 101/55 92 Nasal 07:32 (70) Cannula 03/22/19 2.0 02:27 Intake and Output 03/23/19 03/23/19 03/24/19 1515:00 23:00 07:00 IntakeIntake Total 700 ml 560 ml 100 ml OutputOutput Total 350 ml 300 ml 300 ml BalanceBalance 350 ml 260 ml -200 ml Results Results 24hrs Laboratory Tests Test 03/24/19 04:28 Sodium Level 134 L Potassium Level 4.5 Chloride Level 105 Carbon Dioxide Level 25 Anion Gap 4 L Blood Urea Nitrogen 33 H Creatinine 1.36 H Est Glomerular Filtrat Rate mL/min 52 L Glucose Level 93 Calcium Level 8.6 Phosphorus Level 3.5 Magnesium Level 2.5 Medications Medication Current Medications IV Flush (NS 3 ml) 3 ml PER PROTOCOL IV ; Start 03/21/19 at 07:00 Ondansetron HCl (Zofran Inj) 4 mg Q6H PRN IV NAUSEA/VOMITING; Start 03/21/19 at 07:00 Acetaminophen (Tylenol Tab) 650 mg Q6H PRN PO .PAIN 1-3 OR TEMP; Start 03/21/19 at 07:00 Acetaminophen/ Hydrocodone Bitart ([place] (5/325)) 1 tab Q6H PRN PO .MOD PAIN 4- 6; Start 03/21/19 at 07:00 Acetaminophen/ Hydrocodone Bitart ([place] (5/325)) 2 tab Q6H PRN PO .SEVERE PAIN 7-10 Last administered on 03/24/19 13:12; Admin Dose 2 TAB; Start 03/21/19 at 0 7:00 Albuterol/ Ipratropium (Duoneb) 3 ml Q2H RESP THERAPY PRN HHN SHORTNESS OF BREATH; Start 03/21/19 at 07:00 Pantoprazole (Protonix Tab) 40 mg DAILY@06 PO Last administered on 03/24/19 06:52; Admin Dose 40 MG; Start 03/22/19 at 06:00 Spironolactone (Aldactone) 100 mg DAILY PO Last administered on 03/24/19at 07:01; Admin Dose 100 MG; Start 03/22/19 at 09:00 Metoprolol Tartrate (Lopressor) 25 mg DAILY PO Last administered on 03/24/19 09:10; Admin Dose 25 MG; Start 03/22/19 at 09:00 Apixaban (Eliquis) 5 mg BID PO Last administered on 03/22/19 09:27; Admin Dose 5 MG; Start 03/21/19 at 21:00; Status Hold Melatonin (Melatonin) 10 mg HS PO Last administered on 03/23/19at 21:11; Admin Dose 10 MG; Start 03/21/19 at 21:00 Tramadol HCl (Ultram) 50 mg Q6H PRN PO MODERATE PAIN LEVEL 4-6; Start 03/21/19 at 21:30 Docusate Sodium (Colace) 250 mg BID PO Last administered on 03/24/19 09:09; Admin Dose 250 MG; Start 03/21/19 at 22:00 Heparin Sodium (Porcine) (Heparin (5000 Units/1ml)) 5,000 unit Q8 SC Last administered on 03/24/19 13:18; Admin Dose 5,000 UNIT; Start 03/22/19 at 22:00 Clotrimazole (Lotrimin Cr) 1 applic BID TOP Last administered on 03/24/19 09:09; Admin Dose 1 APPLIC; Start 03/22/19 at 21:00 Docusate Sodium (Colace) 100 mg TID PRN PO CONSTIPATION Last administered on 03/22/19at 16:56; Admin Dose 100 MG; Start 03/22/19 at 17:00 Sodium Biphosphate/ Sodium Phosphate (Fleet Enema) 133 ml DAILY PRN [place] CONSTIPATION Last administered on 03/23/19 10:21; Admin Dose 133 ML; Start 03/23/19 at 06:30 Ferric Sodium Gluconate Complex 125 mg/Sodium Chloride 100 ml @ 100 mls/hr DAILY@1300 IVPB Last administered on 03/24/19 13:12; Admin Dose 100 MLS/HR; Start 03/23/19 at 14:00; Stop 03/25/19 at 13:59 Patient Own Medication 4 ea BID PO Last administered on 03/24/19 06:59; Admin Dose 4 EA; Start 03/23/19 at 21:00 MARIA A MUNOZ MD March 24, 2019 14:50
[2019-03-24] MEDS: POLYETHYLENE GLYCOL 17 GM PACKET PO SCH (15:00)
[2019-03-24 15:03] VITALS: BP 103/50; PULSE 63; RESP 20
[2019-03-24 19:25] VITALS: BP 118/56; PULSE 61; RESP 20
[2019-03-24] MEDS: APIXABAN 5 MG TABLET PO SCH (20:18)
[2019-03-24] MEDS: MELATONIN 5 MG TABLET PO SCH (20:21)
--- NOTE | 2019-03-24 21:07 | CONS ---
Assessment/Plan Assessment/Plan Hospital Course (Demo Recall) IMPRESSION: 1. Preoperative evaluation prior to probable surgery for lower extremity right fibular fracture.-neg trop x 3. NO cp or sob. NO plans for surgery at this time per ortho, NL EF by echo this admit with proper function of AVR 2. Status post fall, mechanical by description. 3. Abnormal electrocardiogram with a left bundle-branch block pattern, likely chronic. 4. History of permanent pacemaker for bradyarrhythmia. 5. History of transcatheter aortic valve replacement. 6. History of gastrointestinal bleed status post cauterization two months prior. 7. History of hepatitis C with subsequent cirrhosis but status post treatment. 8. Renal failure, question of chronic or acute. 9. Possible diabetes, on medications. Recc: -resumed on eliquis as no surgery planned -Continue BB -Continue aldactone -Pain control -PT Consultation Date/Type/Reason Admit Date/Time March 21, 2019 at 01:58 Initial Consult Date 03/21/19 Type of Consult Cardiology Reason for Consultation preop Requesting Provider: BETH IGLESIAS MD Date/Time of Note DATE: 03/24/19 TIME: 21:04 Exam/Review of Systems Vital Signs Vitals Vital Signs Date Temp Pulse Resp B/P (MAP) Pulse Ox O2 O2 Flow FiO2 Time Delivery Rate 03/24/19 98.6 63 20 103/50 95 Nasal 15:03 (67) Cannula 03/22/19 2.0 02:27 Intake and Output 03/23/19 03/23/19 03/24/19 1515:00 23:00 07:00 IntakeIntake Total 700 ml 560 ml 100 ml OutputOutput Total 350 ml 300 ml 300 ml BalanceBalance 350 ml 260 ml -200 ml Exam Exam Review of Systems: CONSTITUTIONAL: No fevers, chills. PULMONARY: No sob CARDIOVASCULAR: No chest pain/palpitations GASTROINTESTINAL: No nausea/vomiting. GENITOURINARY: No hematuria/dysuria. MUSCULOSKELETAL: pain in leg PSYCHIATRIC: The patient denies depression. NEUROLOGIC: No weakness Constitutional: alert, oriented Psych: no complaints Head: normocephalic ENMT: mucosa pink and moist Neck: supple, jvd (9 cm water) Respiratory: diminished breath sounds (at bases/B) Cardiovascular: regular rate and rhythm Gastrointestinal: soft, non-tender Musculoskeletal: muscle tone (normal) Extremities: other (Leg i n cast) Neurological: other (No focal deficits) Labs Result Diagram: 03/23/19 0420 03/24/19 0428 Results 24hrs Laboratory Tests Test 03/24/19 04:28 Sodium Level 134 L Potassium Level 4.5 Chloride Level 105 Carbon Dioxide Level 25 Anion Gap 4 L Blood Urea Nitrogen 33 H Creatinine 1.36 H Est Glomerular Filtrat Rate mL/min 52 L Glucose Level 93 Calcium Level 8.6 Phosphorus Level 3.5 Magnesium Level 2.5 Medications Medications Current Medications IV Flush (NS 3 ml) 3 ml PER PROTOCOL IV ; Start 03/21/19 at 07:00 Ondansetron HCl (Zofran Inj) 4 mg Q6H PRN IV NAUSEA/VOMITING; Start 03/21/19 at 07:00 Acetaminophen (Tylenol Tab) 650 mg Q6H PRN PO .PAIN 1-3 OR TEMP; Start 03/21/19 at 07:00 Acetaminophen/ Hydrocodone Bitart ([place] (5/325)) 1 tab Q6H PRN PO .MOD PAIN 4- 6; Start 03/21/19 at 07:00 Acetaminophen/ Hydrocodone Bitart ([place] (5/325)) 2 tab Q6H PRN PO .SEVERE PAIN 7-10 Last administered on 03/24/19at 13:12; Admin Dose 2 TAB; Start 03/21/19 at 07:00 Albuterol/ Ipratropium (Duoneb) 3 ml Q2H RESP THERAPY PRN HHN SHORTNESS OF BREATH; Start 03/21/19 at 07:00 Pantoprazole (Protonix Tab) 40 mg DAILY@06 PO Last administered on 03/24/19at 06:52; Admin Dose 40 MG; Start 03/22/19 at 06:00 Spironolactone (Aldactone) 100 mg DAILY PO Last administered on 03/24/19at 07:01; Admin Dose 100 MG; Start 03/22/19 at 09:00 Metoprolol Tartrate (Lopressor) 25 mg DAILY PO Last administered on 03/24/19at 09:10; Admin Dose 25 MG; Start 03/22/19 at 09:00 Apixaban (Eliquis) 5 mg BID PO Last administered on 03/24/19at 20:18; Admin Dose 5 MG; Start 03/21/19 at 21:00 Melatonin (Melatonin) 10 mg HS PO Last administered on 03/24/19 20:21; Admin Dose 10 MG; Start 03/21/19 at 21:00 Tramadol HCl (Ultram) 50 mg Q6H PRN PO MODERATE PAIN LEVEL 4-6; Start 03/21/19 at 21:30 Docusate Sodium (Colace) 250 mg BID PO Last administered on 03/24/19 20:18; Admin Dose 250 MG; Start 03/21/19 at 22:00 Clotrimazole (Lotrimin Cr) 1 applic BID TOP Last administered on 03/24/19 20:22; Admin Dose 1 APPLIC; Start 03/22/19 at 21:00 Docusate Sodium (Colace) 100 mg TID PRN PO CONSTIPATION Last administered on 03/22/19 16:56; Admin Dose 100 MG; Start 03/22/19 at 17:00 Sodium Biphosphate/ Sodium Phosphate (Fleet Enema) 133 ml DAILY PRN [place] CONSTIPATION Last administered on 03/23/19 10:21; Admin Dose 133 ML; Start 03/23/19 at 06:30 Ferric Sodium Gluconate Complex 125 mg/Sodium Chloride 100 ml @ 100 mls/hr DAILY@1300 IVPB Last administered on 03/24/19 13:12; Admin Dose 100 MLS/HR; Start 03/23/19 at 14:00; Stop 03/25/19 at 13:59 Patient Own Medication 4 ea BID PO Last administered on 03/24/19 17:59; Admin Dose 4 EA; Start 03/23/19 at 21:00 Polyethylene Glycol (Miralax) 17 gm DAILY PO ; Start 03/24/19 at 15:00 ALTON CUELLAR March 24, 2019 21:07
[2019-03-25] MEDS: HYDROCODONE/APAP (5/325) TAB PO PRN ×3 (01:03→14:56)
[2019-03-25 02:50] VITALS: BP 118/54; PULSE 66; RESP 20
[2019-03-25] MEDS: PANTOPRAZOLE (EC) 40 MG TAB PO SCH (05:27)
[2019-03-25] MEDS: SPIRONOLACTONE 50 MG TAB PO SCH (07:42)
[2019-03-25] MEDS: TORSEMIDE 20 MG PO SCH ×2 (07:43→18:46)
[2019-03-25 07:46] VITALS: BP 107/51; PULSE 68; RESP 20
[2019-03-25] MEDS: DOCUSATE SODIUM 250 MG CAP PO SCH ×2 (08:56→21:51)
[2019-03-25] MEDS: CLOTRIMAZOLE 1% 30 GM CR TOP SCH ×2 (08:57→20:54)
[2019-03-25] MEDS: APIXABAN 5 MG TABLET PO SCH ×2 (08:57→20:52)
[2019-03-25] MEDS: METOPROLOL 25 MG TAB PO SCH ×2 (08:57→20:48)
[2019-03-25] MEDS: POLYETHYLENE GLYCOL 17 GM PACKET PO SCH (08:58)
--- NOTE | 2019-03-25 11:02 | PN ---
DATE: 03/25/2019 SUBJECTIVE: The patient is stable, no events overnight. No fevers, chills, nausea or vomiting. OBJECTIVE: VITAL SIGNS: Blood pressure is 107/51, pulse 68, respirations 20, temperature 98.0. HEENT: Head is normocephalic. NECK: Supple. HEART: Regular rate. LUNGS: Show diminished breath sounds at the base. ABDOMEN: Soft, nontender to palpation without rebound or guarding. EXTREMITIES: Negative for clubbing, cyanosis, no edema. DERMATOLOGIC: No rashes. MUSCULOSKELETAL: No joint effusion. NEUROLOGIC: No change in exam. MEDICATIONS: Reviewed. LABORATORY DATA: Reviewed. ASSESSMENT AND PLAN: 1. Nonoliguric acute kidney injury on top of chronic kidney disease with unknown baseline creatinine . Etiology of acute kidney injury is secondary to hemodynamics. The patient's renal function has be en fluctuating, but creatinine appears to be stabilizing around 1.4 mg/dL. At this point, we will co ntinue current treatment plans, supportive care, and renally dose all medications. Defer any VILMA inh ibitor at this time. 2. Mild hypernatremia, improved. Continue to encourage free water intake. 3. Anemia. Monitor hemoglobin and hematocrit levels. 4. Mineral bone disorder. Monitor calcium and phosphorus levels. 5. Acute right fibular fracture. The patient is seen by orthopedist. Plan is for conservative vivek gement. 6. Obesity. Continue dietary modification. 7. History of aortic valve replacement. 8. History of hepatitis C. 9. History of cirrhosis. Continue medical management. 10. History of gastrointestinal bleed. Dictated By: CORWIN FAIRCHILD DO NR/NTS Conf#: [id number] DID#: [id number] CC: ALLEN TUCKER MD; ALTON CUELLAR MD; MARIA A MUNOZ MD;*EndCC*
[2019-03-25] MEDS: SOD FERRIC GLUC COMPLX 125 MG in SOD CHLORIDE 0.9% 100 ML IVPB SCH (13:47)
[2019-03-25 15:16] VITALS: BP 104/52; RESP 18
--- NOTE | 2019-03-25 15:56 | PN ---
Date/Time of Note Date/Time of Note DATE: 03/25/19 TIME: 15:56 Assessment/Plan VTE Prophylaxis Risk score (from Nsg)>0 risk: 4 SCD applied (from Nsg): Yes Pharmacological prophylaxis: heparin Lines/Catheters IV Catheter Type (from Nrsg): Saline Lock Urinary Cath still in place: No Assessment/Plan Hospital Course Obese Comfortable appearing RRR Soft nt nd wwp no cce A/P: 68 yo male with h/o A Fib, TAVR, PPM, HCV presents with tibia fracture Tibia fracture: - CT results noted - Dr Vigil consulted - Dr Menezes consulted for second opinion - No surgery - Begin PT, ambulation A Fib: - Resume Eliquis Iron def anemia: - IV iron while in house CKD w NADINE: - Hold diuretics for now HCV Obesity Tinea corpis: - clotimin cream PUD: - Pantoprazole Result Diagram: 03/23/1941903/25/19 0426 Results 24hrs Laboratory Tests Test 03/25/19 04:26 Sodium Level 135 Potassium Level 4.5 Chloride Level 104 Carbon Dioxide Level 26 Anion Gap 5 Blood Urea Nitrogen 34 H Creatinine 1.41 H Est Glomerular Filtrat Rate mL/min 50 L Glucose Level 133 # Calcium Level 8.9 Phosphorus Level 4.1 Magnesium Level 2.3 Subjective 24 Hr Interval Summary Free Text/Dictation Awaiting placement Exam/Review of Systems Exam Vitals Vital Signs Date Temp Pulse Resp B/P (MAP) Pulse Ox O2 O2 Flow FiO2 Time Delivery Rate 03/25/19 98.6 18 104/52 95 15:16 (69) 03/25/19 2.0 14:31 03/25/19 68 Room Air 07:46 Intake and Output 03/24/19 03/24/19 03/25/19 1515:00 23:00 07:00 IntakeIntake Total 200 ml 120 ml OutputOutput Total 401 ml 900 ml 400 ml BalanceBalance -201 ml -780 ml -400 ml Results Results 24hrs Laboratory Tests Test 03/25/19 04:26 Sodium Level 135 Potassium Level 4.5 Chloride Level 104 Carbon Dioxide Level 26 Anion Gap 5 Blood Urea Nitrogen 34 H Creatinine 1.41 H Est Glomerular Filtrat Rate mL/min 50 L Glucose Level 133 # Calcium Level 8.9 Phosphorus Level 4.1 Magnesium Level 2.3 Medications Medication Current Medications IV Flush (NS 3 ml) 3 ml PER PROTOCOL IV ; Start 03/21/19 at 07:00 Ondansetron HCl (Zofran Inj) 4 mg Q6H PRN IV NAUSEA/VOMITING; Start 03/21/19 at 07:00 Acetaminophen (Tylenol Tab) 650 mg Q6H PRN PO .PAIN 1-3 OR TEMP; Start 03/21/19 at 07:00 Acetaminophen/ Hydrocodone Bitart ([place] (5/325)) 1 tab Q6H PRN PO .MOD PAIN 4- 6; Start 03/21/19 at 07:00 Acetaminophen/ Hydrocodone Bitart ([place] (5/325)) 2 tab Q6H PRN PO .SEVERE PAIN 7-10 Last administered on 03/25/19 14:56; Admin Dose 2 TAB; Start 03/21/19 at 07:00 Albuterol/ Ipratropium (Duoneb) 3 ml Q2H RESP THERAPY PRN HHN SHORTNESS OF BREATH; Start 03/21/19 at 07:00 Pantoprazole (Protonix Tab) 40 mg DAILY@06 PO Last administered on 03/25/19 05:27; Admin Dose 40 MG; Start 03/22/19 at 06:00 Spironolactone (Aldactone) 100 mg DAILY PO Last administered on 03/25/19 07:42; Admin Dose 100 MG; Start 03/22/19 at 09:00 Metoprolol Tartrate (Lopressor) 25 mg DAILY PO Last administered on 03/25/19 08:57; Admin Dose 25 MG; Start 03/22/19 at 09:00 Apixaban (Eliquis) 5 mg BID PO Last administered on 03/25/19 08:57; Admin Dose 5 MG; Start 03/21/19 at 21:00 Melatonin (Melatonin) 10 mg HS PO Last administered on 03/24/19 20:21; Admin Dose 10 MG; Start 03/21/19 at 21:00 Tramadol HCl (Ultram) 50 mg Q6H PRN PO MODERATE PAIN LEVEL 4-6; Start 03/21/19 at 21:30 Docusate Sodium (Colace) 250 mg BID PO Last administered on 03/25/19 08:56; Admin Dose 250 MG; Start 03/21/19 at 22:00 Clotrimazole (Lotrimin Cr) 1 applic BID TOP Last administered on 03/25/19 08:57; Admin Dose 1 APPLIC; Start 03/22/19 at 21:00 Docusate Sodium (Colace) 100 mg TID PRN PO CONSTIPATION Last administered on 03/22/19 16:56; Admin Dose 100 MG; Start 03/22/19 at 17:00 Sodium Biphosphate/ Sodium Phosphate (Fleet Enema) 133 ml DAILY PRN [place] CONSTIPATION Last administered on 03/23/19at 10:21; Admin Dose 133 ML; Start 03/23/19 at 06:30 Patient Own Medication 4 ea BID PO Last administered on 03/25/19 07:43; Admin Dose 4 EA; Start 03/23/19 at 21:00 Polyethylene Glycol (Miralax) 17 gm DAILY PO ; Start 03/24/19 at 15:00 MARIA A MUNOZ MD March 25, 2019 15:56
--- NOTE | 2019-03-25 19:08 | CONS ---
Assessment/Plan Assessment/Plan Hospital Course (Demo Recall) IMPRESSION: 1. Preoperative evaluation prior to probable surgery for lower extremity right fibular fracture.-neg trop x 3. NO cp or sob. NO plans for surgery at this time per ortho, NL EF by echo this admit with proper function of AVR 2. Status post fall, mechanical by description. 3. Abnormal electrocardiogram with a left bundle-branch block pattern, likely chronic. 4. History of permanent pacemaker for bradyarrhythmia. 5. History of transcatheter aortic valve replacement. 6. History of gastrointestinal bleed status post cauterization two months prior. 7. History of hepatitis C with subsequent cirrhosis but status post treatment. 8. Renal failure, question of chronic or acute. 9. Possible diabetes, on medications. Recc: -resumed on eliquis as no surgery planned -Continue BB but change to BID dosing given half life of medication -Continue aldactone -Pain control -PT Consultation Date/Type/Reason Admit Date/Time March 21, 2019 at 01:58 Initial Consult Date 03/21/19 Type of Consult Cardiology Reason for Consultation LBBB Requesting Provider: BETH IGLESIAS MD Date/Time of Note DATE: 03/25/19 TIME: 19:06 Exam/Review of Systems Vital Signs Vitals Vital Signs Date Temp Pulse Resp B/P (MAP) Pulse Ox O2 O2 Flow FiO2 Time Delivery Rate 03/25/19 98.6 18 104/52 95 15:16 (69) 03/25/19 2.0 14:31 03/25/19 68 Room Air 07:46 Intake and Output 03/24/19 03/24/19 03/25/19 1515:00 23:00 07:00 IntakeIntake Total 200 ml 120 ml OutputOutput Total 401 ml 900 ml 400 ml BalanceBalance -201 ml -780 ml -400 ml Exam Exam Review of Systems: CONSTITUTIONAL: No fevers, chills. PULMONARY: No sob CARDIOVASCULAR: No chest pain/palpitations GASTROINTESTINAL: No nausea/vomiting. GENITOURINARY: No hematuria/dysuria. MUSCULOSKELETAL: No myagias/arthalgias. PSYCHIATRIC: The patient denies depression. NEUROLOGIC: No weakness Constitutional: alert, oriented Psych: no complaints Head: normocephalic ENMT: mucosa pink and moist Neck: supple, jvd (9 cm water) Respiratory: clear to auscultation Cardiovascular: regular rate and rhythm Gastrointestinal: soft, non-tender Musculoskeletal: muscle weakness (mild generalized) Extremities: edema (none) Neurological: other (No focal deficits) Labs Result Diagram: 03/23/1941903/25/19 0426 Results 24hrs Laboratory Tests Test 03/25/19 04:26 Sodium Level 135 Potassium Level 4.5 Chloride Level 104 Carbon Dioxide Level 26 Anion Gap 5 Blood Urea Nitrogen 34 H Creatinine 1.41 H Est Glomerular Filtrat Rate mL/min 50 L Glucose Level 133 # Calcium Level 8.9 Phosphorus Level 4.1 Magnesium Level 2.3 Medications Medications Current Medications IV Flush (NS 3 ml) 3 ml PER PROTOCOL IV ; Start 03/21/19 at 07:00 Ondansetron HCl (Zofran Inj) 4 mg Q6H PRN IV NAUSEA/VOMITING; Start 03/21/19 at 07:00 Acetaminophen (Tylenol Tab) 650 mg Q6H PRN PO .PAIN 1-3 OR TEMP; Start 03/21/19 at 07:00 Acetaminophen/ Hydrocodone Bitart ([place] (5/325)) 1 tab Q6H PRN PO .MOD PAIN 4- 6; Start 03/21/19 at 07:00 Acetaminophen/ Hydrocodone Bitart ([place] (5/325)) 2 tab Q6H PRN PO .SEVERE PAIN 7-10 Last administered on 03/25/19at 14:56; Admin Dose 2 TAB; Start 03/21/19 at 07:00 Albuterol/ Ipratropium (Duoneb) 3 ml Q2H RESP THERAPY PRN HHN SHORTNESS OF BREATH; Start 03/21/19 at 07:00 Pantoprazole (Protonix Tab) 40 mg DAILY@06 PO Last administered on 03/25/19 05:27; Admin Dose 40 MG; Start 03/22/19 at 06:00 Spironolactone (Aldactone) 100 mg DAILY PO Last administered on 03/25/19 07:42; Admin Dose 100 MG; Start 03/22/19 at 09:00 Metoprolol Tartrate (Lopressor) 25 mg DAILY PO Last administered on 03/25/19 08:57; Admin Dose 25 MG; Start 03/22/19 at 09:00 Apixaban (Eliquis) 5 mg BID PO Last administered on 03/25/19 08:57; Admin Dose 5 MG; Start 03/21/19 at 21:00 Melatonin (Melatonin) 10 mg HS PO Last administered on 03/24/19 20:21; Admin Dose 10 MG; Start 03/21/19 at 21:00 Tramadol HCl (Ultram) 50 mg Q6H PRN PO MODERATE PAIN LEVEL 4-6; Start 03/21/19 at 21:30 Docusate Sodium (Colace) 250 mg BID PO Last administered on 03/25/19 08:56; Admin Dose 250 MG; Start 03/21/19 at 22:00 Clotrimazole (Lotrimin Cr) 1 applic BID TOP Last administered on 03/25/19 08:57; Admin Dose 1 APPLIC; Start 03/22/19 at 21:00 Docusate Sodium (Colace) 100 mg TID PRN PO CONSTIPATION Last administered on 03/22/19 16:56; Admin Dose 100 MG; Start 03/22/19 at 17:00 Sodium Biphosphate/ Sodium Phosphate (Fleet Enema) 133 ml DAILY PRN [place] CONSTIPATION Last administered on 03/23/19 10:21; Admin Dose 133 ML; Start 03/23/19 at 06:30 Patient Own Medication 4 ea BID PO Last administered on 03/25/19 18:46; Admin Dose 4 EA; Start 03/23/19 at 21:00 Polyethylene Glycol (Miralax) 17 gm DAILY PO ; Start 03/24/19 at 15:00 ALTON CUELLAR March 25, 2019 19:08
[2019-03-25 19:40] VITALS: BP 110/52; RESP 20
[2019-03-25] MEDS: MELATONIN 5 MG TABLET PO SCH (20:48)
[2019-03-26] MEDS: PANTOPRAZOLE (EC) 40 MG TAB PO SCH (05:57)
[2019-03-26] MEDS: POLYETHYLENE GLYCOL 17 GM PACKET PO SCH ×2 (08:08→09:00)
[2019-03-26] MEDS: APIXABAN 5 MG TABLET PO SCH ×2 (08:08→20:30)
[2019-03-26] MEDS: DOCUSATE SODIUM 250 MG CAP PO SCH ×2 (08:08→20:30)
[2019-03-26] MEDS: TORSEMIDE 20 MG PO SCH ×2 (08:08→20:37)
[2019-03-26] MEDS: METOPROLOL 25 MG TAB PO SCH ×2 (08:12→20:36)
[2019-03-26] MEDS: SPIRONOLACTONE 50 MG TAB PO SCH (08:12)
[2019-03-26 08:14] VITALS: BP 110/56; PULSE 68; RESP 16
[2019-03-26] MEDS: CLOTRIMAZOLE 1% 30 GM CR TOP SCH (08:14)
[2019-03-26 08:34] VITALS: BP 114/57; PULSE 65; RESP 18
[2019-03-26] MEDS: HYDROCODONE/APAP (5/325) TAB PO PRN ×2 (08:59→17:48)
--- NOTE | 2019-03-26 11:50 | PN ---
DATE: 03/26/2019 SUBJECTIVE: The patient is stable, no events overnight. No fevers, chills, nausea, or vomiting. OBJECTIVE: VITAL SIGNS: Blood pressure is 110/56, respirations 16, pulse 68, temperature 97.7. HEENT: Head is normocephalic. NECK: Supple. HEART: Regular rate. LUNGS: Show diminished breath sounds at the base. ABDOMEN: Soft, nontender to palpation without rebound or guarding. EXTREMITIES: Negative for clubbing, cyanosis, no edema. DERMATOLOGIC: No rashes. MUSCULOSKELETAL: No joint effusion. NEUROLOGIC: No change in exam. MEDICATIONS: The patient's medications have been reviewed. LABORATORY DATA: Reviewed. ASSESSMENT AND PLAN: 1. Nonoliguric acute kidney injury on top of chronic kidney disease with baseline creatinine. Etiol ogy of acute kidney injury is secondary to hemodynamics. The patient's renal function is fluctuating , but overall stable between a creatinine of 1.4 to 1.6 mg/dL. At this point, continue current treat ment plan, supportive care, renally dose all medications. 2. Mild hypernatremia, improved. Continue to encourage free water intake. 3. Anemia. Monitor hemoglobin and hematocrit levels. 4. Mineral bone disorder. Monitor calcium and phosphorus levels. 5. Acute right fibular fracture. Continue to monitor, continue supportive care and conservative man agement. 6. Obesity. Continue dietary modification. 7. History of aortic valve replacement. 8. History of hepatitis C. 9. Cirrhosis. Continue medical management. 10. History of gastrointestinal bleed. 11. Atrial fibrillation. Continue current medical management. The patient is on Eliquis, monitor h emoglobin and hematocrit levels closely. Dictated By: CORWIN FAIRCHILD DO NR/NTS Conf#: [id number] DID#: [id number] CC: ALTON CUELLAR MD; ALLEN TUCKER MD; MARIA A MUNOZ MD;*End*
[2019-03-26] MEDS: DOCUSATE SODIUM 100 MG CAP PO PRN ×2 (13:02→17:54)
[2019-03-26 14:10] VITALS: BP 99/53; PULSE 66; RESP 18
--- NOTE | 2019-03-26 14:58 | DS ---
Date/Time of Note Date/Time of Note DATE: 03/26/19 TIME: 14:57 Discharge Summary Admission/Discharge Info Admit Date/Time March 21, 2019 at 01:58 Discharge Date/Time Discharge Diagnosis Tibia fracture Patient Condition: Stable Hospital Course 68 yo male with h/o A Fib, TAVR, PPM, HCV presented after fall. Found to have a tibia fracture. He was seen by two different orthopedists both of whom recommended against surgical intervention. He was continued on his diuretic r egimen. He was given IV iron for iron deficiency. He worked with PT. he was arranged for SNF for rehab He was continued on Eliquis for A Fib Primary Care Provider Care Physician No Primary Pending Labs Laboratory Tests Test 03/26/19 04:30 Sodium Level 136 mmol/L (135-144) Potassium Level 4.4 mmol/L (3.5-5.1) Chloride Level 105 mmol/L (97-110) Carbon Dioxide Level 24 mmol/L (21-31) Anion Gap 7 (5-13) Blood Urea Nitrogen 39 mg/dl (7-20) Creatinine 1.68 mg/dl (0.61-1.24) Est Glomerular Filtrat Rate mL/min 41 mL/min (>60) Glucose Level 124 mg/dl (70-220) Calcium Level 8.9 mg/dl (8.4-10.2) Phosphorus Level 4.4 mg/dl (2.5-4.9) Magnesium Level 2.2 mg/dl (1.7-2.5) MARIA A MUNOZ MD March 26, 2019 14:58
--- NOTE | 2019-03-26 16:37 | CONS ---
Assessment/Plan Assessment/Plan Hospital Course (Demo Recall) IMPRESSION: 1. Preoperative evaluation prior to probable surgery for lower extremity right fibular fracture.-neg trop x 3. NO cp or sob. NO plans for surgery at this time per ortho, NL EF by echo this admit with proper function of AVR 2. Status post fall, mechanical by description. 3. Abnormal electrocardiogram with a left bundle-branch block pattern, likely chronic. 4. History of permanent pacemaker for bradyarrhythmia. 5. History of transcatheter aortic valve replacement. 6. History of gastrointestinal bleed status post cauterization two months prior. 7. History of hepatitis C with subsequent cirrhosis but status post treatment. 8. Renal failure, question of chronic or acute. 9. Possible diabetes, on medications. Recc: -Continue eliquis as no surgery planned -Continue currrent BB -Continue aldactone -Pain control -PT -to be trasnferred to SNF Consultation Date/Type/Reason Admit Date/Time March 21, 2019 at 01:58 Initial Consult Date 03/21/19 Type of Consult Cardiology Reason for Consultation Preop/LBBB Requesting Provider: BETH IGLESIAS MD Date/Time of Note DATE: 03/26/19 TIME: 16:35 Exam/Review of Systems Vital Signs Vitals Vital Signs Date Temp Pulse Resp B/P (MAP) Pulse Ox O2 O2 Flow FiO2 Time Delivery Rate 03/26/19 98.1 66 18 99/53 (68) 94 Room Air 14:10 03/26/19 2.0 00:53 Intake and Output 03/25/19 03/25/19 03/26/19 1515:00 23:00 07:00 IntakeIntake Total 100 ml 250 ml OutputOutput Total 401 ml 1000 ml BalanceBalance -301 ml -750 ml Exam Exam Review of Systems: CONSTITUTIONAL: No fevers, chills. PULMONARY: No sob CARDIOVASCULAR: No chest pain/palpitations GASTROINTESTINAL: No nausea/vomiting. GENITOURINARY: No hematuria/dysuria. MUSCULOSKELETAL: pain in leg PSYCHIATRIC: The patient denies depression. NEUROLOGIC: No weakness Constitutional: alert Psych: no complaints Head: normocephalic ENMT: mucosa pink and moist Neck: supple, jvd (9 cm water) Respiratory: clear to auscultation Cardiovascular: regular rate and rhythm Gastrointestinal: soft, non-tender Musculoskeletal: muscle weakness (mild generalized) Extremities: edema (none) Labs Result Diagram: 03/23/19 0420 03/26/19 0430 Results 24hrs Laboratory Tests Test 03/26/19 04:30 Sodium Level 136 Potassium Level 4.4 Chloride Level 105 Carbon Dioxide Level 24 Anion Gap 7 Blood Urea Nitrogen 39 H Creatinine 1.68 H Est Glomerular Filtrat Rate mL/min 41 L Glucose Level 124 Calcium Level 8.9 Phosphorus Level 4.4 Magnesium Level 2.2 Medications Medications Current Medications IV Flush (NS 3 ml) 3 ml PER PROTOCOL IV ; Start 03/21/19 at 07:00 Ondansetron HCl (Zofran Inj) 4 mg Q6H PRN IV NAUSEA/VOMITING; Start 03/21/19 at 07:00 Acetaminophen (Tylenol Tab) 650 mg Q6H PRN PO .PAIN 1-3 OR TEMP; Start 03/21/19 at 07:00 Acetaminophen/ Hydrocodone Bitart ([place] (5/325)) 1 tab Q6H PRN PO .MOD PAIN 4- 6; Start 03/21/19 at 07:00 Acetaminophen/ Hydrocodone Bitart ([place] (5/325)) 2 tab Q6H PRN PO .SEVERE PAIN 7-10 Last administered on 03/26/19at 08:59; Admin Dose 2 TAB; Start 03/21/19 at 07:00 Albuterol/ Ipratropium (Duoneb) 3 ml Q2H RESP THERAPY PRN HHN SHORTNESS OF BREATH; Start 03/21/19 at 07:00 Pantoprazole (Protonix Tab) 40 mg DAILY@06 PO Last administered on 03/26/19at 05:57; Admin Dose 40 MG; Start 03/22/19 at 06:00 Spironolactone (Aldactone) 100 mg DAILY PO Last administered on 03/26/19at 08:12; Admin Dose 100 MG; Start 03/22/19 at 09:00 Apixaban (Eliquis) 5 mg BID PO Last administered on 03/26/19at 08:08; Admin Dose 5 MG; Start 03/21/19 at 21:00 Melatonin (Melatonin) 10 mg HS PO Last administered on 03/25/19at 20:48; Admin Dose 10 MG; Start 03/21/19 at 21:00 Tramadol HCl (Ultram) 50 mg Q6H PRN PO MODERATE PAIN LEVEL 4-6; Start 03/21/19 at 21:30 Docusate Sodium (Colace) 250 mg BID PO Last administered on 03/26/19 08:08; Admin Dose 250 MG; Start 03/21/19 at 22:00 Clotrimazole (Lotrimin Cr) 1 applic BID TOP Last administered on 03/25/19 20:54; Admin Dose 1 APPLIC; Start 03/22/19 at 21:00 Docusate Sodium (Colace) 100 mg TID PRN PO CONSTIPATION Last administered on 03/26/19 13:02; Admin Dose 100 MG; Start 03/22/19 at 17:00 Sodium Biphosphate/ Sodium Phosphate (Fleet Enema) 133 ml DAILY PRN [place] CONSTIPATION Last administered on 03/23/19 10:21; Admin Dose 133 ML; Start 03/23/19 at 06:30 Patient Own Medication 4 ea BID PO Last administered on 03/26/19 08:08; Admin Dose 4 EA; Start 03/23/19 at 21:00 Polyethylene Glycol (Miralax) 17 gm DAILY PO ; Start 03/24/19 at 15:00 Metoprolol Tartrate (Lopressor) 12.5 mg BID PO Last administered on 03/26/19 08:12; Admin Dose 12.5 MG; Start 03/25/19 at 21:00 ALTON CUELLAR March 26, 2019 16:37
[2019-03-26 19:10] VITALS: BP 108/52; PULSE 72; RESP 20
[2019-03-26] MEDS: MELATONIN 5 MG TABLET PO SCH (20:30)
== END 2019-03-26 21:00 | DRG 563 ==
LOC: E/R 00:10 → MS1 01:58
PROVIDERS: ADMIT Internal Medicine; ATTEND Internal Medicine
DX: S82.831A Other fracture of upper and lower end of right fibula, initial encounter for closed fracture (principal); Z68.43 Body mass index [BMI] 50.0-59.9, adult; N17.9 Acute kidney failure, unspecified; D61.818 Other pancytopenia; E87.0 Hyperosmolality and hypernatremia; I48.91 Unspecified atrial fibrillation; E66.01 Morbid (severe) obesity due to excess calories; E78.5 Hyperlipidemia, unspecified; B19.20 Unspecified viral hepatitis C without hepatic coma; N18.9 Chronic kidney disease, unspecified; D64.9 Anemia, unspecified; D50.9 Iron deficiency anemia, unspecified; Z95.0 Presence of cardiac pacemaker; Z95.2 Presence of prosthetic heart valve; K76.9 Liver disease, unspecified; Z86.73 Personal history of transient ischemic attack (TIA), and cerebral infarction without residual deficits; E11.22 Type 2 diabetes mellitus with diabetic chronic kidney disease; Z87.891 Personal history of nicotine dependence; W19.XXXA Unspecified fall, initial encounter; B35.4 Tinea corporis; I44.7 Left bundle-branch block, unspecified; E83.9 Disorder of mineral metabolism, unspecified; K27.9 Peptic ulcer, site unspecified, unspecified as acute or chronic, without hemorrhage or perforation
CPT/HCPCS: 71045; 73562; 73590; 73700; 76775; 80048; 80053; 80061; 81003; 82043; 82550; 82553; 82728; 82962; 83036; 83540; 83735; 84100; 84155; 84300; 84443; 84484; 85025; 85610; 86850; 86900; 86901; 93005; 93306; 97110; 97162; 97530; J1644; J1815; J1940; J2270; J2405; J2916; L1832